=== PATIENT | male | born 1955 | race Caucasian/White ===

== ENCOUNTER 2017-05-19 15:16 | Observation (INO) | payer MEDICARE ==
[~2017-05-19] VITALS: Ht 180.3 cm; Wt 119.4 kg
[~2017-05-19 15:16] MED LIST: ALBU90OI INH; ALLO300 PO; ASPI325 PO; ASPI81EC PO; ATECHL PO; AZIT250 PO; CLOP75 PO; DIAZ2 PO; DIPH50 PO; FISH OIL 1,0001 EAC1 PO; HYDACE25S PR; HYDACE5 PO; LISHYD1012 PO; LISI5 PO; LOVA40 PO; METPRE4DP PO; NAPR500 PO; NEBI10 PO; NEBI5 PO; PRED20 PO; Pepcid40 MG PO; Prednisone10 MG PO
[2017-05-19 16:09] LABS: BASOPHILS ABSOLUTE AUTO 0.04 K/mm3 (0.00-0.23); BASOPHILS PERCENT AUTO 0 % (0-2); EOSINOPHILS ABSOLUTE AUTO 0.19 K/mm3 (0.00-0.68); EOSINOPHILS PERCENT AUTO 2 % (0-6); Hematocrit 46.4 % (37.0-53.0); Hemoglobin 15.4 g/dL (13.5-17.5); IMMATURE GRAN ABSOLUTE AUTO 0.09 K/mm3 (0.00-0.10); IMMATURE GRAN PERCENT AUTO 1 % (0-1); LYMPHOCYTES ABSOLUTE AUTO 1.65 K/mm3 (0.84-5.20); LYMPHOCYTES PERCENT AUTO 15 % (21-46); MONOCYTES ABSOLUTE AUTO 0.54 K/mm3 (0.16-1.47); MONOCYTES PERCENT AUTO 5 % (4-13); Mean Corpuscular HGB 30.3 pg (26.0-34.0); Mean Corpuscular HGB Conc 33.2 g/dL (31.5-36.5); Mean Corpuscular Volume 91 fL (80-100); Mean Platelet Volume 11.5 fL (9.1-12.4); NEUTROPHILS ABSOLUTE AUTO 8.18 K/mm3 (1.96-9.15); NEUTROPHILS PERCENT AUTO 77 % (41-73); Platelet Count 141 K/mm3 (150-400); RDW Coefficient Variation 14.3 % (11.7-14.2); RDW Standard Deviation 48.5 fL (35.1-46.3); Red Blood Cell Count 5.08 M/mm3 (4.30-5.90); White Blood Cell Count 10.69 K/mm3 (4.00-11.30)
[2017-05-19 16:55] LABS: Alanine Aminotransfer (ALT/SGP 52 U/L (12-78); Albumin, Blood 3.4 g/dL (3.4-5.0); Albumin/Globulin Ratio 0.7 (0.8-1.8); Alk Phos 90 U/L (50-136); Anion Gap 9 mmol/L (6-16); Aspartate Aminotrans (AST/SGOT 41 U/L (12-37); Bilirubin, Total 0.4 mg/dL (0.1-1.0); Blood Urea Nitrogen 20 mg/dL (8-24); Bun/Creatinine Ratio 20.8 (12.0-20.0); CO2, Blood 25 mmol/L (21-32); Calcium, Blood 9.5 mg/dL (8.5-10.1); Chloride, Blood 104 mmol/L (98-108); Creatinine, Blood 0.96 mg/dL (0.60-1.20); Globulin, Blood 4.8 g/dL (2.2-4.0); Glomerular Filtration Rate >60 (60-); Glucose, Blood 111 mg/dL (70-99); Potassium, Blood 3.8 mmol/L (3.5-5.5); Sodium, Blood 138 mmol/L (136-145); Total Protein, Blood 8.2 g/dL (6.4-8.2); Troponin I <0.015 ng/mL (0.000-0.040)
[2017-05-19 18:26] LABS: Source, Urine Voided
[2017-05-19 18:31] LABS: Appearance, Urine Clear (Clear); Bilirubin, Urine Neg (Neg); Blood, Urine Neg (Neg); Color, Urine Yellow (P-Yellow); Glucose Qualitative, Urine Neg (Neg); Ketones, Urine Neg (Neg); Leukocyte Esterase, Urine Neg (Neg); Nitrite, Urine Neg (Neg); Protein, Urine Neg (Neg); Specific Gravity, Urine 1.005 (1.003-1.022); Urobilinogen, Urine NORM (Normal)
[2017-05-20 00:31] LABS: Troponin I 0.524 ng/mL (0.000-0.040)
[2017-05-20 06:21] LABS: International Normalized Ratio 1.08; Prothrombin Time Results 11.3 Sec (9.7-11.5)
[2017-05-20 08:22] LABS: BASOPHILS ABSOLUTE AUTO 0.03 K/mm3 (0.00-0.23); BASOPHILS PERCENT AUTO 0 % (0-2); EOSINOPHILS ABSOLUTE AUTO 0.02 K/mm3 (0.00-0.68); EOSINOPHILS PERCENT AUTO 0 % (0-6); Hematocrit 44.8 % (37.0-53.0); Hemoglobin 15.2 g/dL (13.5-17.5); IMMATURE GRAN ABSOLUTE AUTO 0.13 K/mm3 (0.00-0.10); IMMATURE GRAN PERCENT AUTO 1 % (0-1); LYMPHOCYTES ABSOLUTE AUTO 0.88 K/mm3 (0.84-5.20); LYMPHOCYTES PERCENT AUTO 8 % (21-46); MONOCYTES ABSOLUTE AUTO 0.56 K/mm3 (0.16-1.47); MONOCYTES PERCENT AUTO 5 % (4-13); Mean Corpuscular HGB 30.5 pg (26.0-34.0); Mean Corpuscular HGB Conc 33.9 g/dL (31.5-36.5); Mean Corpuscular Volume 90 fL (80-100); Mean Platelet Volume 11.5 fL (9.1-12.4); NEUTROPHILS ABSOLUTE AUTO 9.55 K/mm3 (1.96-9.15); NEUTROPHILS PERCENT AUTO 85 % (41-73); Platelet Count 121 K/mm3 (150-400); RDW Coefficient Variation 14.4 % (11.7-14.2); RDW Standard Deviation 47.9 fL (35.1-46.3); Red Blood Cell Count 4.98 M/mm3 (4.30-5.90); White Blood Cell Count 11.17 K/mm3 (4.00-11.30)
[2017-05-20 08:52] LABS: Alanine Aminotransfer (ALT/SGP 52 U/L (12-78); Albumin, Blood 3.4 g/dL (3.4-5.0); Albumin/Globulin Ratio 0.7 (0.8-1.8); Alk Phos 81 U/L (50-136); Anion Gap 4 mmol/L (6-16); Aspartate Aminotrans (AST/SGOT 75 U/L (12-37); Bilirubin, Total 0.6 mg/dL (0.1-1.0); Blood Urea Nitrogen 16 mg/dL (8-24); Bun/Creatinine Ratio 18.1 (12.0-20.0); CO2, Blood 25 mmol/L (21-32); CPK Creatine Kinase 363 U/L (39-308); Calcium, Blood 9.3 mg/dL (8.5-10.1); Chloride, Blood 108 mmol/L (98-108); Creatinine, Blood 0.88 mg/dL (0.60-1.20); Globulin, Blood 4.6 g/dL (2.2-4.0); Glomerular Filtration Rate >60 (60-); Glucose, Blood 169 mg/dL (70-99); Potassium, Blood 3.6 mmol/L (3.5-5.5); Sodium, Blood 137 mmol/L (136-145)
[2017-05-20 09:08] LABS: Creatine Kinase MB 38.5 ng/mL (0.0-3.6); Creatine Kinase MB Index 10.6 (0.0-4.0)
[2017-05-21] MEDS ORDERED: FISH OIL OMEGA1 EAC2 PO (11:58)
[2017-05-21] MEDS ORDERED: NITR.4SL SL (12:02)
[2017-05-21] MEDS ORDERED: XARELTO15 MG PO (12:03)
[2017-05-21] MEDS ORDERED: BRILINTA90 MG PO (12:04)
== END 2017-05-21 12:51 | disposition home or self-care (01) ==
LOC: ER 15:16 → ICUE 15:17 → MEDS 15:17 → ICUE 18:35 → MEDS 18:46 → ICUE 05-20 05:24
PROVIDERS: Hospitalist; Internal Medicine; Physician Assistant
DX: I21.3 ST elevation (STEMI) myocardial infarction of unspecified site (principal); I10 Essential (primary) hypertension; I25.10 Atherosclerotic heart disease of native coronary artery without angina pectoris; E78.5 Hyperlipidemia, unspecified; I25.9 Chronic ischemic heart disease, unspecified; I25.2 Old myocardial infarction; Z98.890 Other specified postprocedural states; Z87.01 Personal history of pneumonia (recurrent); Z79.82 Long term (current) use of aspirin; Z79.02 Long term (current) use of antithrombotics/antiplatelets; Z79.899 Other long term (current) drug therapy
CPT/HCPCS: 36415; 71046; 76705; 80053; 81003; 82550; 82553; 83690; 83880; 84484; 85025; 85347; 85610; 85730; 92978; 93005; 93010; 93306; 93454; 99152; 99153; 99285; C1753; C1769; C1894; C9113; J0360; J1644; J2250; J2405; J3010; J7030; J7040; Q9967

== ENCOUNTER 2017-07-13 14:36 | Emergency (ER) | payer MEDICARE ==
[~2017-07-13] VITALS: Ht 175.3 cm; Wt 119.8 kg
[~2017-07-13 14:36] MED LIST changes: +BRILINTA90 MG PO; +FISH OIL OMEGA1 EAC2 PO; +NITR.4SL SL; +XARELTO15 MG PO
== END 2017-07-13 15:03 | disposition home or self-care (01) ==
LOC: ER 14:36
DX: S91.311A Laceration without foreign body, right foot, initial encounter (principal); W22.8XXA Striking against or struck by other objects, initial encounter; Z79.899 Other long term (current) drug therapy; Z79.82 Long term (current) use of aspirin; I10 Essential (primary) hypertension; Z87.891 Personal history of nicotine dependence
CPT/HCPCS: 12001; 99282

== ENCOUNTER 2018-02-15 19:34 | Emergency (ER) | payer MEDICARE, OTHER ==
[~2018-02-15] VITALS: Ht 175.3 cm; Wt 110.2 kg
[~2018-02-15 19:34] MED LIST changes: +ASCO500 PO; +ASPI81CH PO; +ESOM20 PO; +Prinivil10 MG PO; +XARELTO10 MG PO
[2018-02-15] MEDS ORDERED: Gummi Bear Mul1 EACH PO (20:31)
[2018-02-15] MEDS ORDERED: IRON PO (20:33)
[2018-02-15 20:37] LABS: BASOPHILS ABSOLUTE AUTO 0.04 K/mm3 (0.00-0.23); BASOPHILS PERCENT AUTO 0 % (0-2); EOSINOPHILS ABSOLUTE AUTO 0.04 K/mm3 (0.00-0.68); EOSINOPHILS PERCENT AUTO 0 % (0-6); Hematocrit 47.4 % (37.0-53.0); Hemoglobin 14.7 g/dL (13.5-17.5); IMMATURE GRAN ABSOLUTE AUTO 0.08 K/mm3 (0.00-0.10); IMMATURE GRAN PERCENT AUTO 1 % (0-1); LYMPHOCYTES PERCENT AUTO 13 % (21-46); MONOCYTES ABSOLUTE AUTO 0.51 K/mm3 (0.16-1.47); MONOCYTES PERCENT AUTO 4 % (4-13); Mean Corpuscular HGB 29.4 pg (26.0-34.0); Mean Corpuscular Volume 95 fL (80-100); Mean Platelet Volume 10.8 fL (9.1-12.4); NEUTROPHILS ABSOLUTE AUTO 9.37 K/mm3 (1.96-9.15); NEUTROPHILS PERCENT AUTO 81 % (41-73); Platelet Count 123 K/mm3 (150-400); RDW Coefficient Variation 17.8 % (11.7-14.2); RDW Standard Deviation 62.4 fL (35.1-46.3); White Blood Cell Count 11.54 K/mm3 (4.00-11.30)
[2018-02-15 20:50] LABS: International Normalized Ratio 1.03; Prothrombin Time Results 10.6 Sec (9.7-11.5)
[2018-02-15 20:58] LABS: Albumin, Blood 3.3 g/dL (3.4-5.0); Albumin/Globulin Ratio 0.7 (0.8-1.8); Bilirubin, Total 0.3 mg/dL (0.1-1.0); Bun/Creatinine Ratio 21.1 (12.0-20.0); Calcium, Blood 8.9 mg/dL (8.5-10.1); Creatinine, Blood 1.33 mg/dL (0.60-1.20); Globulin, Blood 4.6 g/dL (2.2-4.0); Potassium, Blood 4.7 mmol/L (3.5-5.5); Total Protein, Blood 7.9 g/dL (6.4-8.2)
== END 2018-02-15 21:50 | disposition home or self-care (01) ==
LOC: ER 19:34
PROVIDERS: Emergency Medicine
DX: R25.2 Cramp and spasm (principal); I10 Essential (primary) hypertension; D64.9 Anemia, unspecified
CPT/HCPCS: 36415; 80053; 85025; 85610; 85730; 86850; 86900; 86901; 93005; 93010; 99283-25

== ENCOUNTER 2018-02-22 19:40 | Emergency (ER) | payer MEDICARE, OTHER ==
[~2018-02-22] VITALS: Ht 175.3 cm; Wt 108.9 kg
[~2018-02-22 19:40] MED LIST changes: +Gummi Bear Mul1 EACH PO; +IRON PO
[2018-02-22 20:21] LABS: BASOPHILS ABSOLUTE AUTO 0.03 K/mm3 (0.00-0.23); BASOPHILS PERCENT AUTO 0 % (0-2); EOSINOPHILS ABSOLUTE AUTO 0.02 K/mm3 (0.00-0.68); EOSINOPHILS PERCENT AUTO 0 % (0-6); Hematocrit 48.5 % (37.0-53.0); Hemoglobin 14.9 g/dL (13.5-17.5); IMMATURE GRAN ABSOLUTE AUTO 0.09 K/mm3 (0.00-0.10); IMMATURE GRAN PERCENT AUTO 1 % (0-1); LYMPHOCYTES ABSOLUTE AUTO 1.49 K/mm3 (0.84-5.20); LYMPHOCYTES PERCENT AUTO 15 % (21-46); MONOCYTES ABSOLUTE AUTO 0.51 K/mm3 (0.16-1.47); MONOCYTES PERCENT AUTO 5 % (4-13); Mean Corpuscular HGB 28.8 pg (26.0-34.0); Mean Corpuscular HGB Conc 30.7 g/dL (31.5-36.5); Mean Corpuscular Volume 94 fL (80-100); Mean Platelet Volume 10.3 fL (9.1-12.4); NEUTROPHILS ABSOLUTE AUTO 8.03 K/mm3 (1.96-9.15); NEUTROPHILS PERCENT AUTO 79 % (41-73); Platelet Count 123 K/mm3 (150-400); RDW Coefficient Variation 17.3 % (11.7-14.2); RDW Standard Deviation 60.4 fL (35.1-46.3); Red Blood Cell Count 5.18 M/mm3 (4.30-5.90); White Blood Cell Count 10.17 K/mm3 (4.00-11.30)
[2018-02-22 20:46] LABS: Alanine Aminotransfer (ALT/SGP 71 U/L (12-78); Albumin, Blood 3.3 g/dL (3.4-5.0); Albumin/Globulin Ratio 0.7 (0.8-1.8); Alk Phos 81 U/L (50-136); Anion Gap 8 mmol/L (6-16); Aspartate Aminotrans (AST/SGOT 36 U/L (12-37); Bilirubin, Total 0.3 mg/dL (0.1-1.0); Blood Urea Nitrogen 27 mg/dL (8-24); Bun/Creatinine Ratio 25.2 (12.0-20.0); CO2, Blood 24 mmol/L (21-32); Calcium, Blood 8.9 mg/dL (8.5-10.1); Chloride, Blood 110 mmol/L (98-108); Creatinine, Blood 1.07 mg/dL (0.60-1.20); Globulin, Blood 4.5 g/dL (2.2-4.0); Glomerular Filtration Rate >60 (60-); Glucose, Blood 106 mg/dL (70-99); Potassium, Blood 4.5 mmol/L (3.5-5.5); Sodium, Blood 142 mmol/L (136-145); Total Protein, Blood 7.8 g/dL (6.4-8.2)
[2018-02-23] MEDS ORDERED: Cyclobenzaprine5 MG PO (00:30)
== END 2018-02-23 00:57 | disposition home or self-care (01) ==
LOC: ER 19:40
PROVIDERS: Emergency Medicine
DX: R25.2 Cramp and spasm (principal); Z79.899 Other long term (current) drug therapy; Z79.82 Long term (current) use of aspirin; I10 Essential (primary) hypertension; I25.2 Old myocardial infarction; Z87.891 Personal history of nicotine dependence
CPT/HCPCS: 36415; 70450; 80053; 85025; 99284-25

== ENCOUNTER 2018-05-13 17:40 | Emergency (ER) | payer MEDICARE ==
[~2018-05-13] VITALS: Ht 175.3 cm; Wt 111.1 kg
[~2018-05-13 17:40] MED LIST changes: +Cyclobenzaprine5 MG PO
[2018-05-13 18:17] LABS: BASOPHILS ABSOLUTE AUTO 0.04 K/mm3 (0.00-0.23); BASOPHILS PERCENT AUTO 0 % (0-2); EOSINOPHILS ABSOLUTE AUTO 0.15 K/mm3 (0.00-0.68); EOSINOPHILS PERCENT AUTO 2 % (0-6); Hematocrit 45.9 % (37.0-53.0); Hemoglobin 14.4 g/dL (13.5-17.5); IMMATURE GRAN PERCENT AUTO 1 % (0-1); LYMPHOCYTES ABSOLUTE AUTO 1.44 K/mm3 (0.84-5.20); LYMPHOCYTES PERCENT AUTO 15 % (21-46); MONOCYTES ABSOLUTE AUTO 0.45 K/mm3 (0.16-1.47); MONOCYTES PERCENT AUTO 5 % (4-13); Mean Corpuscular HGB 29.6 pg (26.0-34.0); Mean Corpuscular HGB Conc 31.4 g/dL (31.5-36.5); Mean Corpuscular Volume 94 fL (80-100); NEUTROPHILS ABSOLUTE AUTO 7.21 K/mm3 (1.96-9.15); NEUTROPHILS PERCENT AUTO 77 % (41-73); RDW Coefficient Variation 13.9 % (11.7-14.2); RDW Standard Deviation 47.7 fL (35.1-46.3); Red Blood Cell Count 4.87 M/mm3 (4.30-5.90); White Blood Cell Count 9.39 K/mm3 (4.00-11.30)
[2018-05-13 18:34] LABS: Mean Platelet Volume 11.3 fL (9.1-12.4); Platelet Count 121 K/mm3 (150-400)
[2018-05-13 18:38] LABS: Alanine Aminotransfer (ALT/SGP 43 U/L (12-78); Albumin, Blood 3.3 g/dL (3.4-5.0); Albumin/Globulin Ratio 0.7 (0.8-1.8); Alk Phos 88 U/L (50-136); Anion Gap 4 mmol/L (6-16); Aspartate Aminotrans (AST/SGOT 27 U/L (12-37); Bilirubin, Total 0.4 mg/dL (0.1-1.0); Blood Urea Nitrogen 18 mg/dL (8-24); Bun/Creatinine Ratio 17.1 (12.0-20.0); CO2, Blood 28 mmol/L (21-32); Calcium, Blood 9.2 mg/dL (8.5-10.1); Chloride, Blood 106 mmol/L (98-108); Creatinine, Blood 1.05 mg/dL (0.60-1.20); Globulin, Blood 4.8 g/dL (2.2-4.0); Glomerular Filtration Rate >60 (60-); Glucose, Blood 116 mg/dL (70-99); Potassium, Blood 4.1 mmol/L (3.5-5.5); Sodium, Blood 138 mmol/L (136-145); Total Protein, Blood 8.1 g/dL (6.4-8.2); Troponin I <0.015 ng/mL (0.000-0.040)
== END 2018-05-13 21:50 | disposition home or self-care (01) ==
LOC: ER 17:40
PROVIDERS: Emergency Medicine
DX: R07.9 Chest pain, unspecified (principal); I10 Essential (primary) hypertension; Z95.5 Presence of coronary angioplasty implant and graft; Z88.2 Allergy status to sulfonamides; Z88.8 Allergy status to other drugs, medicaments and biological substances; Z79.82 Long term (current) use of aspirin; Z79.899 Other long term (current) drug therapy
CPT/HCPCS: 36415; 71046; 80053; 83690; 84484; 85025; 93005; 93010; 99285-25

== ENCOUNTER 2018-10-29 09:23 | Emergency (ER) | payer OTHER, MEDICARE ==
[~2018-10-29] VITALS: Ht 175.3 cm; Wt 106.1 kg
[~2018-10-29 09:23] MED LIST changes: -ASPI81CH PO; +Aspir 8181 MG PO; +LISI20 PO
[2018-10-29] MEDS ORDERED: ESOMEPRAZOLE MA40 MG PO (09:43)
[2018-10-29] MEDS ORDERED: Voltaren100 GM TOP (11:09)
[2018-10-29] MEDS ORDERED: CYCL10 PO (11:09)
[2018-10-29] MEDS ORDERED: Ultram50 MG PO (11:09)
[2018-10-30] MEDS ORDERED: ONDA4ODT MM (04:55)
[2018-10-30] MEDS ORDERED: CYCL10 PO (13:52)
== END 2018-10-29 11:37 | disposition home or self-care (01) ==
LOC: ER 09:23
DX: M25.552 Pain in left hip (principal); I10 Essential (primary) hypertension; I25.10 Atherosclerotic heart disease of native coronary artery without angina pectoris; I25.2 Old myocardial infarction; Z88.8 Allergy status to other drugs, medicaments and biological substances; Z79.899 Other long term (current) drug therapy; Z79.02 Long term (current) use of antithrombotics/antiplatelets; Z79.82 Long term (current) use of aspirin
CPT/HCPCS: 73502; 99283-25; A9270-GY

== ENCOUNTER 2018-10-30 10:03 | Observation (INO) | payer MEDICARE ==
[~2018-10-30] VITALS: Ht 175.3 cm; Wt 107.0 kg
[~2018-10-30 10:03] MED LIST changes: +CYCL10 PO; +ESOMEPRAZOLE MA40 MG PO; +ONDA4ODT MM; +Ultram50 MG PO; +Voltaren100 GM TOP
[2018-10-30 10:38] LABS: BASOPHILS ABSOLUTE AUTO 0.05 K/mm3 (0.00-0.23); BASOPHILS PERCENT AUTO 1 % (0-2); EOSINOPHILS ABSOLUTE AUTO 0.05 K/mm3 (0.00-0.68); EOSINOPHILS PERCENT AUTO 1 % (0-6); Hematocrit 43.9 % (37.0-53.0); Hemoglobin 14.7 g/dL (13.5-17.5); IMMATURE GRAN PERCENT AUTO 1 % (0-1); LYMPHOCYTES PERCENT AUTO 13 % (21-46); MONOCYTES ABSOLUTE AUTO 0.49 K/mm3 (0.16-1.47); MONOCYTES PERCENT AUTO 5 % (4-13); Mean Corpuscular HGB 30.4 pg (26.0-34.0); Mean Corpuscular HGB Conc 33.5 g/dL (31.5-36.5); Mean Corpuscular Volume 91 fL (80-100); Mean Platelet Volume 11.4 fL (9.1-12.4); NEUTROPHILS ABSOLUTE AUTO 8.74 K/mm3 (1.96-9.15); NEUTROPHILS PERCENT AUTO 81 % (41-73); Platelet Count 136 K/mm3 (150-400); RDW Coefficient Variation 14.8 % (11.7-14.2); RDW Standard Deviation 49.9 fL (35.1-46.3); Red Blood Cell Count 4.83 M/mm3 (4.30-5.90); White Blood Cell Count 10.83 K/mm3 (4.00-11.30)
[2018-10-30 10:53] LABS: Alanine Aminotransfer (ALT/SGP 51 U/L (12-78); Albumin, Blood 3.6 g/dL (3.4-5.0); Albumin/Globulin Ratio 0.7 (0.8-1.8); Alk Phos 89 U/L (50-136); Anion Gap 7 mmol/L (6-16); Aspartate Aminotrans (AST/SGOT 42 U/L (12-37); Bilirubin, Total 0.5 mg/dL (0.1-1.0); Blood Urea Nitrogen 20 mg/dL (8-24); Bun/Creatinine Ratio 20.7 (12.0-20.0); CO2, Blood 23 mmol/L (21-32); Calcium, Blood 9.4 mg/dL (8.5-10.1); Chloride, Blood 109 mmol/L (98-108); Creatinine, Blood 0.97 mg/dL (0.60-1.20); Glomerular Filtration Rate >60 (60-); Glucose, Blood 131 mg/dL (70-99); Potassium, Blood 4.2 mmol/L (3.5-5.5); Sodium, Blood 139 mmol/L (136-145); Total Protein, Blood 8.6 g/dL (6.4-8.2)
[2018-10-30 13:34] LABS: Source, Urine Clean Catch
[2018-10-30 13:43] LABS: Bilirubin, Urine Neg (Neg); Blood, Urine 1+ (Neg); Glucose Qualitative, Urine Neg (Neg); Ketones, Urine Neg (Neg); Leukocyte Esterase, Urine Neg (Neg); Nitrite, Urine Neg (Neg); Protein, Urine 2+ (Neg); Specific Gravity, Urine 1.015 (1.003-1.022); Urobilinogen, Urine NORM (Normal)
[2018-10-30] MEDS ORDERED: CYCL10 PO (13:52)
[2018-10-30 13:56] LABS: Appearance, Urine Clear (Clear); Color, Urine Yellow (P-Yellow)
[2018-10-30 13:57] LABS: Bacteria Mod /hpf; Red Blood Cells, Urine Not Seen /hpf (0-2); Squamous Epithelial Cells Rare /hpf (Few); White Blood Cells, Urine 0-2 /hpf (0-5)
[2018-10-30 13:58] LABS: Mucus Light (0-Heavy)
--- NOTE | 2018-10-30 19:09 | NUR ---
SHIFT SUMMARY: PATIENT ADMIT FROM ED THIS SHIFT. PT A&O; CALM AND COOEPRATIVE WITH CARE. MEDICATED FOR PAIN PER EMAR. 2X SMALL BLOODY STOOLS THIS SHIFT; NM SCAN EARLIER IN ED; NO EVIDENCE OF ACUTE GI HEMORRHAGE; HEMOCCULT POSITIVE. IN ROOM. FLUIDS + KCL CONTINUING; OBSERVATION STATUS. REPORT GIVEN TO ONCOMING RN.
[2018-10-30 20:25] LABS: Hematocrit 40.6 % (37.0-53.0); Hemoglobin 13.4 g/dL (13.5-17.5)
--- NOTE | 2018-10-31 04:57 | NUR ---
SHIFT SUMMARY: Santosh IS A 63 Y/O MALE, INDEPENDENT IN THE ROOM. WHO HAS BEEN HAVING BLOODY STOOLS THROUGHOUT THE NIGHT. HE REPORTS THREE UNWITNESSED STOOLS AND 1 WITNESSED THAT SHOWED 1/8 OF A CUP OF BRIGHT RED BLOOD IN THE HAT. STATES IT HAS BEEN CONTINUING TO INCREASE IN AMOUNT EACH MOVEMENT. IV INFUSING THROUGHOUT THE NIGHT WITH NO COMPLICATIONS, MEDS WERE ADMINISTERED PER EMAR. HAS REMAINED AT HIS SIDE ALL NIGHT. HE HAS NOT COMPLAINED OF PAIN THIS SHIFT. NO OTHER CHANGES HAVE OCCURED, CALL LIGHT HAS REMAINED WITH IN REACH AND USED APPROPRIATLY, WILL REPORT TO ON COMING RN.
[2018-10-31 05:01] LABS: BASOPHILS ABSOLUTE AUTO 0.03 K/mm3 (0.00-0.23); BASOPHILS PERCENT AUTO 0 % (0-2); EOSINOPHILS ABSOLUTE AUTO 0.09 K/mm3 (0.00-0.68); EOSINOPHILS PERCENT AUTO 1 % (0-6); Hematocrit 42.8 % (37.0-53.0); Hemoglobin 13.6 g/dL (13.5-17.5); IMMATURE GRAN ABSOLUTE AUTO 0.04 K/mm3 (0.00-0.10); IMMATURE GRAN PERCENT AUTO 1 % (0-1); LYMPHOCYTES ABSOLUTE AUTO 1.19 K/mm3 (0.84-5.20); LYMPHOCYTES PERCENT AUTO 15 % (21-46); MONOCYTES ABSOLUTE AUTO 0.52 K/mm3 (0.16-1.47); MONOCYTES PERCENT AUTO 6 % (4-13); Mean Corpuscular HGB 29.6 pg (26.0-34.0); Mean Corpuscular HGB Conc 31.8 g/dL (31.5-36.5); Mean Corpuscular Volume 93 fL (80-100); NEUTROPHILS ABSOLUTE AUTO 6.21 K/mm3 (1.96-9.15); NEUTROPHILS PERCENT AUTO 77 % (41-73); Platelet Count 108 K/mm3 (150-400); RDW Coefficient Variation 14.9 % (11.7-14.2); RDW Standard Deviation 51.6 fL (35.1-46.3); Red Blood Cell Count 4.59 M/mm3 (4.30-5.90); White Blood Cell Count 8.08 K/mm3 (4.00-11.30)
[2018-10-31 05:29] LABS: Anion Gap 4 mmol/L (6-16); Blood Urea Nitrogen 15 mg/dL (8-24); Bun/Creatinine Ratio 15.3 (12.0-20.0); CO2, Blood 26 mmol/L (21-32); Calcium, Blood 8.9 mg/dL (8.5-10.1); Chloride, Blood 110 mmol/L (98-108); Creatinine, Blood 0.98 mg/dL (0.60-1.20); Glomerular Filtration Rate >60 (60-); Glucose, Blood 130 mg/dL (70-99); Sodium, Blood 140 mmol/L (136-145)
--- NOTE | 2018-10-31 19:05 | NUR ---
PT. WITHOUT CHANGE THIS SHIFT. HAD TO STOOLS OF FLAQUITO RED BLOOD AND MUCUS, DIET ADVANCED TO FULL LIQUIDS AND PT. TOLERATED WELL. DENIES PAIN.
[2018-11-01 05:05] LABS: BASOPHILS ABSOLUTE AUTO 0.03 K/mm3 (0.00-0.23); BASOPHILS PERCENT AUTO 0 % (0-2); EOSINOPHILS ABSOLUTE AUTO 0.16 K/mm3 (0.00-0.68); EOSINOPHILS PERCENT AUTO 2 % (0-6); Hematocrit 42.2 % (37.0-53.0); Hemoglobin 13.4 g/dL (13.5-17.5); IMMATURE GRAN ABSOLUTE AUTO 0.04 K/mm3 (0.00-0.10); IMMATURE GRAN PERCENT AUTO 1 % (0-1); LYMPHOCYTES ABSOLUTE AUTO 1.48 K/mm3 (0.84-5.20); LYMPHOCYTES PERCENT AUTO 21 % (21-46); MONOCYTES ABSOLUTE AUTO 0.47 K/mm3 (0.16-1.47); MONOCYTES PERCENT AUTO 7 % (4-13); Mean Corpuscular HGB 29.7 pg (26.0-34.0); Mean Corpuscular HGB Conc 31.8 g/dL (31.5-36.5); Mean Corpuscular Volume 94 fL (80-100); Mean Platelet Volume 10.9 fL (9.1-12.4); NEUTROPHILS ABSOLUTE AUTO 4.92 K/mm3 (1.96-9.15); NEUTROPHILS PERCENT AUTO 69 % (41-73); Platelet Count 105 K/mm3 (150-400); RDW Coefficient Variation 14.9 % (11.7-14.2); RDW Standard Deviation 51.9 fL (35.1-46.3); Red Blood Cell Count 4.51 M/mm3 (4.30-5.90)
[2018-11-01 05:23] LABS: Alanine Aminotransfer (ALT/SGP 43 U/L (12-78); Albumin/Globulin Ratio 0.7 (0.8-1.8); Alk Phos 71 U/L (50-136); Anion Gap 7 mmol/L (6-16); Aspartate Aminotrans (AST/SGOT 30 U/L (12-37); Bilirubin, Total 0.4 mg/dL (0.1-1.0); Blood Urea Nitrogen 11 mg/dL (8-24); CO2, Blood 25 mmol/L (21-32); Calcium, Blood 9.2 mg/dL (8.5-10.1); Chloride, Blood 109 mmol/L (98-108); Creatinine, Blood 0.92 mg/dL (0.60-1.20); Globulin, Blood 4.2 g/dL (2.2-4.0); Glomerular Filtration Rate >60 (60-); Glucose, Blood 119 mg/dL (70-99); Potassium, Blood 4.1 mmol/L (3.5-5.5); Sodium, Blood 141 mmol/L (136-145); Total Protein, Blood 7.2 g/dL (6.4-8.2)
--- NOTE | 2018-11-01 05:49 | NUR ---
SHIFT SUMMARY: 63 Y/O MALE, INDEPENDENT IN THE ROOM, WHO HAS BEEN RESTING COMFORTABLY THROUGHOUT THE NIGHT. HE HAS HAD NO ACUTE CHANGES OR CONCERNS. MEDS WERE GIVEN PER EMAR. IV IS SL. NO PAIN OR DISCOMFORT THIS SHIFT. WILL REPORT TO DAY SHIFT RN.
--- NOTE | 2018-11-01 14:00 | NUR ---
PT. DISCHARGED HOME WITH SPOUSE. NO FURTHER BLEEDING NOTED. INSTRUCTIONS GIVEN TO FOLLOW UP WITH GI IF BLEEDING RECURS.
== END 2018-11-01 14:05 | disposition home or self-care (01) ==
LOC: ER 10:03 → MEDS 10:04 → ENPENDDIS 11-01 11:09 → MEDS 11-01 14:05
PROVIDERS: Family Medicine; Internal Medicine; ADMIT Hospitalist
DX: K92.1 Melena (principal); K57.91 Diverticulosis of intestine, part unspecified, without perforation or abscess with bleeding; K57.90 Diverticulosis of intestine, part unspecified, without perforation or abscess without bleeding; I10 Essential (primary) hypertension; I25.10 Atherosclerotic heart disease of native coronary artery without angina pectoris; E78.5 Hyperlipidemia, unspecified; M19.90 Unspecified osteoarthritis, unspecified site; K21.9 Gastro-esophageal reflux disease without esophagitis; I25.2 Old myocardial infarction; Z95.5 Presence of coronary angioplasty implant and graft; Z88.8 Allergy status to other drugs, medicaments and biological substances; R11.2 Nausea with vomiting, unspecified; Z79.899 Other long term (current) drug therapy; Z79.02 Long term (current) use of antithrombotics/antiplatelets; Z79.82 Long term (current) use of aspirin
CPT/HCPCS: 36415; 78278; 80048; 80053; 81001; 85014; 85018; 85025; 86850; 86900; 86901; 87086; 93005; 93010; 96361; 96374; 99284-25; A9270-GY; A9560; G0378; J2405; J3480

== ENCOUNTER 2018-12-21 07:22 | Day surgery (SDC) | payer MEDICARE, OTHER ==
[~2018-12-21] VITALS: Ht 175.3 cm; Wt 110.9 kg
[~2018-12-21 07:22] MED LIST changes: +Altoprev40 MG PO; +Ascorbic Acid500 MG PO; +Aspirin EC81 MG PO; +TICA90TA PO
== END 2018-12-21 10:21 | disposition home or self-care (01) ==
LOC: ORSCSDS 07:22
PROVIDERS: Student in an Organized Health Care Education/Training Program
PROC: 0DBN8ZX Excision of Sigmoid Colon, Via Natural or Artificial Opening Endoscopic, Diagnostic (ICD-10-PCS; principal; 2018-12-21 09:00)
PROC: 0DBL8ZX Excision of Transverse Colon, Via Natural or Artificial Opening Endoscopic, Diagnostic (ICD-10-PCS; principal; 2018-12-21 09:00)
DX: Z12.11 Encounter for screening for malignant neoplasm of colon (principal); D12.3 Benign neoplasm of transverse colon; K63.5 Polyp of colon; K55.20 Angiodysplasia of colon without hemorrhage; K57.30 Diverticulosis of large intestine without perforation or abscess without bleeding; K64.8 Other hemorrhoids; Z86.010 Personal history of colon polyps; I25.10 Atherosclerotic heart disease of native coronary artery without angina pectoris; Z79.899 Other long term (current) drug therapy; G47.33 Obstructive sleep apnea (adult) (pediatric); I10 Essential (primary) hypertension; E11.9 Type 2 diabetes mellitus without complications; E78.5 Hyperlipidemia, unspecified; Z79.82 Long term (current) use of aspirin; Z87.891 Personal history of nicotine dependence
CPT/HCPCS: 88305; J0330; J0461; J2001; J2250; J2405; J2704; J7120

== ENCOUNTER 2020-05-20 08:47 | Day surgery (SDC) | payer MEDICARE, OTHER ==
[~2020-05-20] VITALS: Ht 175.3 cm; Wt 119.2 kg
[~2020-05-20 08:47] MED LIST changes: +ACETAMINOPHEN500 MG PO; +NITROGLYCERIN0.4 M1 SL; +Nexium40 MG PO; +OMEP20ER PO; +Ondansetron Odt8 MG MM; +SUCR1 PO
--- NOTE | 2020-05-20 09:24 | NUR ---
Ambulatory in Day Surgery Patient confirms NPO status and agrees with scheduled surgery. History, Chart, Medications and Allergies reviewed before start of procedure. Lungs clear T/O to Auscultation. Patient reports completing Chlorhexadine shower X2 prior to admission to hospital.
--- NOTE | 2020-05-20 13:10 | NUR ---
PT ARRIVED FROM PACU AT APPROXIMATELY 1300. PT ALERT AND ORIENTED AT TIME OF ARRIVAL. R HIP DRESSING C/D/I. PT DENIES PAIN AND REPORTS NUMBNESS TO BLE. HE IS ABLE TO MOVE BLE BUT APPEARS TO HAVE SOME RESIDUAL WEAKNESS FROM SPINAL ANESTHESIA.
--- NOTE | 2020-05-20 18:21 | NUR ---
SHIFT REPORT PT HAS BEEN IN PLEASENT MOOD. PT IS A&O X4. PT IS TOLLERATING NORMAL TEXTURE FOOD AND THIN LIQUIDS WELL. PT DID COMPLAIN OF "HOT FLASH AND NAUSUA." NAUSEA RESOLVED WITH PRN ZOFRAN. VITAL SIGNS HAVE BEEN STABLE. PT NAPPED COMFORTABLY IN BED FOR APPROX 2 HOURS AFTER ARRIVAL. PT EXIBITED MOVEMENT BILATERALLY IN FEET. BILATERAL PEDAL PULSES ARE PRESENT. PT TRANSFERS WITH WALKER, GAIT BELT, AND MINIMAL ASSISTANCE. PT HAS A STEADY GAIT. PT TRANSFERED TO AND FROM CHAIR. WHILE IN CHAIR FEET WERE ELEVATED. PT LIKES TO TALK ALONG WITH TV SHOW HE IS WATCHING. PT REQUESTED URINAL OVERNIGHT. CALL LIGHT IS WITHIN REACH. IV IS PATENT.
--- NOTE | 2020-05-20 18:28 | NUR ---
SHIFT SUMMARY PT IS POD#0 FROM R TKA WITH DR. FREITAS. PT HAS DENIED PAIN POST-OP. HE WORKED WITH THERAPY THIS AFTERNOON AND IS SITTING UP TO THE CHAIR. PT TOLERATING PO. VSS. WILL MONITOR UNTIL REPORT TO NOC ANÍBAL.
[2020-05-21 05:18] LABS: BASOPHILS ABSOLUTE AUTO 0.01 K/mm3 (0.00-0.23); BASOPHILS PERCENT AUTO 0 % (0-2); EOSINOPHILS PERCENT AUTO 0 % (0-6); Hematocrit 33.9 % (37.0-53.0); Hemoglobin 11.1 g/dL (13.5-17.5); IMMATURE GRAN ABSOLUTE AUTO 0.12 K/mm3 (0.00-0.10); IMMATURE GRAN PERCENT AUTO 1 % (0-1); LYMPHOCYTES PERCENT AUTO 7 % (21-46); MONOCYTES ABSOLUTE AUTO 0.51 K/mm3 (0.16-1.47); MONOCYTES PERCENT AUTO 4 % (4-13); Mean Corpuscular HGB 30.7 pg (26.0-34.0); Mean Corpuscular HGB Conc 32.7 g/dL (31.5-36.5); Mean Corpuscular Volume 94 fL (80-100); Mean Platelet Volume 11.6 fL (9.1-12.4); NEUTROPHILS ABSOLUTE AUTO 10.51 K/mm3 (1.96-9.15); NEUTROPHILS PERCENT AUTO 88 % (41-73); Platelet Count 95 K/mm3 (150-400); RDW Coefficient Variation 13.8 % (11.7-14.2); RDW Standard Deviation 47.4 fL (35.1-46.3); Red Blood Cell Count 3.62 M/mm3 (4.30-5.90); White Blood Cell Count 11.95 K/mm3 (4.00-11.30)
[2020-05-21 05:57] LABS: Anion Gap 6 mmol/L (6-16); Blood Urea Nitrogen 19 mg/dL (8-24); Bun/Creatinine Ratio 17.9 (12.0-20.0); CO2, Blood 26 mmol/L (21-32); Calcium, Blood 8.4 mg/dL (8.5-10.1); Chloride, Blood 107 mmol/L (98-108); Creatinine, Blood 1.06 mg/dL (0.60-1.20); Glomerular Filtration Rate >60 (60-); Glucose, Blood 156 mg/dL (70-99); Potassium, Blood 4.6 mmol/L (3.5-5.5); Sodium, Blood 139 mmol/L (136-145)
--- NOTE | 2020-05-21 06:31 | NUR ---
SHIFT SUMMARY SITTING UP IN CHAIR AT BEDSIDE WITH EYES OPEN. HAS RESTED WELL THIS SHIFT. NO SIGNIFICANT CHANGES NOTED. RESPIRATIONS EVEN AN UNLABORED ON RA. ADEQUATE URINARY OUTPUT NOTED VIA URINAL. AMBULATED IN HALLWAY WITH SBA, FWW, AND GB, TOLERATED WELL. HAS DENIED NEED FOR PRN PAIN MEDS, SCHEDULED TYLENOL WAS SUFFICIENT WITH POLAR RAJENDRA TO MANANGE PAIN. JORDAN'S/SCD'S IN PLACE. HAS DENIED DISCOMFORT OR FURTHER NEEDS AT THIS TIME. SAFETY MEASURES IN PLACE. WILL CONTINUE TO MONITOR AND ADDRESS NEEDS OR CONCERNS THEY ARISE. HAND OFF TO BE GIVEN TO ONCOMING SHIFT USING SBAR DURING BEDSIDE REPORT.
[2020-05-21] MEDS ORDERED: ASPIR 8181 M1 PO (08:42)
[2020-05-21] MEDS ORDERED: Percocet 5-3251 EACH PO (08:42)
--- NOTE | 2020-05-21 11:35 | NUR ---
DISCHARGE PT LEFT VIA WHEELCHAIR AT APPROX 1130. PT USED [employer] TAXI PER HIS REQUEST. PT STATED WILL BE WAITING FOR HIM WITH WALKER ONCE HE ARRIVES HOME. ALL BELONGINGS SENT WITH PATIENT. DISCHARGE INFORMATION GONE OVER WITH PATIENT. DENIED FURTHER QUESTIONS. EXTRA DRESSINGS AND POLAR RAJENDRA WITH PATIENT. IV REMOVED PRIOR TO DISCHARGE. PT REPORTS PAIN TOLERABLE. WORKED WITH PT AND CLEARED. TOLERATED PO WELL.
== END 2020-05-21 11:30 | disposition home or self-care (01) ==
LOC: ORSCMMR 08:47 → SURS 12:58 → ORSCMMR 05-21 11:30
PROVIDERS: Orthopaedic Surgery
PROC: 0SR90JZ Replacement of Right Hip Joint with Synthetic Substitute, Open Approach (ICD-10-PCS; principal; 2020-05-20 10:45)
DX: M16.11 Unilateral primary osteoarthritis, right hip (principal); I10 Essential (primary) hypertension; I25.10 Atherosclerotic heart disease of native coronary artery without angina pectoris; I25.2 Old myocardial infarction; E78.00 Pure hypercholesterolemia, unspecified; E66.01 Morbid (severe) obesity due to excess calories; Z68.38 Body mass index [BMI] 38.0-38.9, adult; Z79.899 Other long term (current) drug therapy; Z79.82 Long term (current) use of aspirin
CPT/HCPCS: 36415; 72170; 80048; 85025; 97110; 97110-CQ; 97116-CQ; 97161; 97530-CQ; A9270; A9270-GY; C1776; J0171; J0690; J0735; J1100; J1885; J2250; J2370; J2405; J2704; J2795; J3010; J7120

== ENCOUNTER 2020-07-21 19:36 | Emergency (ER) | payer MEDICARE ==
[~2020-07-21] VITALS: Ht 175.3 cm; Wt 117.9 kg
[~2020-07-21 19:36] MED LIST changes: +ASPIR 8181 M1 PO; +Percocet 5-3251 EACH PO
== END 2020-07-21 19:58 | disposition home or self-care (01) ==
LOC: ER 19:36
DX: Z04.89 Encounter for examination and observation for other specified reasons (principal); I10 Essential (primary) hypertension; Z88.0 Allergy status to penicillin; Z79.82 Long term (current) use of aspirin; Z87.891 Personal history of nicotine dependence; Z95.5 Presence of coronary angioplasty implant and graft
CPT/HCPCS: 99282

== ENCOUNTER 2021-09-04 04:02 | Emergency (ER) | payer MEDICARE ==
[~2021-09-04] VITALS: Ht 175.3 cm; Wt 117.9 kg
[2021-09-04] MEDS ORDERED: NYSTOP15 GM TOP (05:18)
== END 2021-09-04 05:30 | disposition home or self-care (01) ==
LOC: ER 04:02
DX: L30.4 Erythema intertrigo (principal); I10 Essential (primary) hypertension; I25.2 Old myocardial infarction; I25.10 Atherosclerotic heart disease of native coronary artery without angina pectoris; Z88.8 Allergy status to other drugs, medicaments and biological substances; Z79.899 Other long term (current) drug therapy; Z87.891 Personal history of nicotine dependence
CPT/HCPCS: 99282

== ENCOUNTER 2021-09-05 14:08 | Inpatient (IN) | payer MEDICARE ==
[~2021-09-05] VITALS: Ht 175.3 cm; Wt 110.0 kg
[~2021-09-05 14:08] MED LIST changes: +NYSTOP15 GM TOP
[2021-09-05 15:18] LABS: BASOPHILS ABSOLUTE AUTO 0.05 K/mm3 (0.00-0.23); BASOPHILS PERCENT AUTO 0 % (0-2); EOSINOPHILS PERCENT AUTO 0 % (0-6); Hemoglobin 14.7 g/dL (13.5-17.5); IMMATURE GRAN ABSOLUTE AUTO 0.31 K/mm3 (0.00-0.10); IMMATURE GRAN PERCENT AUTO 1 % (0-1); LYMPHOCYTES ABSOLUTE AUTO 0.57 K/mm3 (0.84-5.20); LYMPHOCYTES PERCENT AUTO 3 % (21-46); MONOCYTES ABSOLUTE AUTO 0.77 K/mm3 (0.16-1.47); MONOCYTES PERCENT AUTO 3 % (4-13); Mean Corpuscular HGB 30.9 pg (26.0-34.0); Mean Corpuscular HGB Conc 34.2 g/dL (31.5-36.5); Mean Corpuscular Volume 91 fL (80-100); Mean Platelet Volume 11.3 fL (9.1-12.4); NEUTROPHILS ABSOLUTE AUTO 21.07 K/mm3 (1.96-9.15); NEUTROPHILS PERCENT AUTO 93 % (41-73); Platelet Count 104 K/mm3 (150-400); RDW Coefficient Variation 13.5 % (11.7-14.2); RDW Standard Deviation 45.2 fL (35.1-46.3); Red Blood Cell Count 4.75 M/mm3 (4.30-5.90); White Blood Cell Count 22.77 K/mm3 (4.00-11.30)
[2021-09-05 15:33] LABS: Albumin, Blood 3.4 g/dL (3.4-5.0); Albumin/Globulin Ratio 0.7 (0.8-1.8); Bilirubin, Total 0.9 mg/dL (0.1-1.0); Bun/Creatinine Ratio 20.1 (12.0-20.0); Calcium, Blood 9.5 mg/dL (8.5-10.1); Creatinine, Blood 0.95 mg/dL (0.60-1.20); Globulin, Blood 5.2 g/dL (2.2-4.0); Potassium, Blood 4.2 mmol/L (3.5-5.5); Total Protein, Blood 8.6 g/dL (6.4-8.2)
--- NOTE | 2021-09-06 04:44 | NUR ---
SHIFT SUMMARY PT NEW ED ADMIT THIS EVENING. A/O X 4. SLIGHTLY UNSTEADY ON HIS FEET BUT AMBULATED WELL WITH JUST A SBA FROM THE ED GURNEY TO THE BED. PT SLEPT MUCH OF THE EVENING. RASH/EXCORIATION/FUNGAL INFECTION TO R GROIN CLEANED AND DRIED, PICTURES TAKEN AND PLACED IN CHART, AND ANTIFUNGAL POWDER APPLIED. REDNESS NOTED TO RLE WELL THAT PT REPORTS IS NOT NEW AND THAT HE WAS ON ANTIBIOTICS FOR PRIOR TO ADMISSION. VITAL SIGNS STABLE. NO ACUTE EVENTS THIS EVENING.
[2021-09-06 04:55] LABS: BASOPHILS ABSOLUTE AUTO 0.02 K/mm3 (0.00-0.23); BASOPHILS PERCENT AUTO 0 % (0-2); EOSINOPHILS PERCENT AUTO 0 % (0-6); Hematocrit 39.9 % (37.0-53.0); Hemoglobin 13.2 g/dL (13.5-17.5); IMMATURE GRAN ABSOLUTE AUTO 0.14 K/mm3 (0.00-0.10); IMMATURE GRAN PERCENT AUTO 1 % (0-1); LYMPHOCYTES ABSOLUTE AUTO 0.72 K/mm3 (0.84-5.20); LYMPHOCYTES PERCENT AUTO 4 % (21-46); MONOCYTES ABSOLUTE AUTO 0.55 K/mm3 (0.16-1.47); MONOCYTES PERCENT AUTO 3 % (4-13); Mean Corpuscular HGB 30.8 pg (26.0-34.0); Mean Corpuscular HGB Conc 33.1 g/dL (31.5-36.5); Mean Corpuscular Volume 93 fL (80-100); Mean Platelet Volume 11.4 fL (9.1-12.4); NEUTROPHILS PERCENT AUTO 92 % (41-73); Platelet Count 80 K/mm3 (150-400); RDW Coefficient Variation 13.8 % (11.7-14.2); Red Blood Cell Count 4.28 M/mm3 (4.30-5.90); White Blood Cell Count 18.03 K/mm3 (4.00-11.30)
[2021-09-06 05:15] LABS: Bun/Creatinine Ratio 18.3 (12.0-20.0); Calcium, Blood 8.8 mg/dL (8.5-10.1); Creatinine, Blood 1.26 mg/dL (0.60-1.20); Potassium, Blood 4.8 mmol/L (3.5-5.5)
--- NOTE | 2021-09-06 19:01 | NUR ---
SHIFT SUMMARY; PATIENT REMAINED ON BEDREST TODAY. COMPLAINING OF PAIN IN HIS RIGHT LEG. DENIES ANY PAIN OR BURNING IN HIS GROIN AREA. HE IS COMPLIANT WITH CARE. USES CALL LIGHT APPROPRIATELY. PER NEEDS TO HAVE SKIN MARKERS AROUND HIS REDDENED AREA ON HIS RIGHT LEG. PER PATIENT HIS OXYCODONE DID NOT HELP THE PAIN SO HE WAS MEDICATED WITH TORADOL AT SHIFT CHANGE 30MG IVP. REPORT TO VOLODYMYR SPANGLER AT SHIFT CHANGE.
--- NOTE | 2021-09-07 04:26 | NUR ---
SHIFT SUMMARY PT HAD AN UNEVENTFUL NIGHT. SLEPT OFF AND ON. OFFERED A SHOWER AND PT DECLINED. GROIN CLEANED, DRIED, AND ANTIFUNGAL POWDER APPLIED. RLE REDNESS WITH SLIGHT IMPROVEMENT. PT CONTINUES TO REPORT PAIN TO RLE. TORADOL AND PERCOCET EFFECTIVE. NEW IV PLACED TO R HAND. VITAL SIGNS STABLE. NO ACUTE EVENTS THIS EVENING.
[2021-09-07 04:56] LABS: BASOPHILS ABSOLUTE AUTO 0.02 K/mm3 (0.00-0.23); BASOPHILS PERCENT AUTO 0 % (0-2); EOSINOPHILS ABSOLUTE AUTO 0.08 K/mm3 (0.00-0.68); EOSINOPHILS PERCENT AUTO 1 % (0-6); Hematocrit 38.4 % (37.0-53.0); Hemoglobin 12.5 g/dL (13.5-17.5); IMMATURE GRAN ABSOLUTE AUTO 0.08 K/mm3 (0.00-0.10); IMMATURE GRAN PERCENT AUTO 1 % (0-1); LYMPHOCYTES PERCENT AUTO 8 % (21-46); MONOCYTES ABSOLUTE AUTO 0.41 K/mm3 (0.16-1.47); MONOCYTES PERCENT AUTO 4 % (4-13); Mean Corpuscular HGB 30.8 pg (26.0-34.0); Mean Corpuscular HGB Conc 32.6 g/dL (31.5-36.5); Mean Corpuscular Volume 95 fL (80-100); Mean Platelet Volume 11.6 fL (9.1-12.4); NEUTROPHILS ABSOLUTE AUTO 9.72 K/mm3 (1.96-9.15); NEUTROPHILS PERCENT AUTO 87 % (41-73); Platelet Count 79 K/mm3 (150-400); RDW Coefficient Variation 13.6 % (11.7-14.2); RDW Standard Deviation 47.6 fL (35.1-46.3); Red Blood Cell Count 4.06 M/mm3 (4.30-5.90); White Blood Cell Count 11.21 K/mm3 (4.00-11.30)
[2021-09-07 05:13] LABS: Albumin, Blood 2.4 g/dL (3.4-5.0); Anion Gap 3 mmol/L (6-16); Blood Urea Nitrogen 25 mg/dL (8-24); CO2, Blood 27 mmol/L (21-32); Calcium, Blood 9.2 mg/dL (8.5-10.1); Chloride, Blood 105 mmol/L (98-108); Creatinine, Blood 1.25 mg/dL (0.60-1.20); Glomerular Filtration Rate 64 (60-); Glucose, Blood 105 mg/dL (70-99); Magnesium, Blood 2.2 mg/dL (1.6-2.4); Phosphorus, Blood 2.3 mg/dL (2.5-4.9); Potassium, Blood 4.4 mmol/L (3.5-5.5); Sodium, Blood 135 mmol/L (136-145)
--- NOTE | 2021-09-07 17:49 | NUR ---
PATIENT APPEARS TO BE FEELING WELL. HE IS ALERT AND ORIENTATED WITH SENSE OF HUMOR INTACT. LEG REDNESS IS SMALLER THAN YESTERDAY. THE LOWER RIGHT LEG IS STILL RED, AND INFLAMMED. A JORDAN SOCK WAS ORDERED ONLY FOR COMFORT, SO THE PATIENT CAN USE IT FOR A COUPLE HOURS AT A TIME AND THEN IT CAN BE REMOVED. THE JORDAN DOES INCREASE THE REDNESS. GROIN YEAST IS HEALING. PATIENT CAN MOVE HIS FOOT TODAY, WHICH HE WAS UNABLE TO DO YESTERDAY. HE HAS NO OTHER COMPLAINTS.
--- NOTE | 2021-09-08 04:21 | NUR ---
SHIFT SUMMARY PT HAD AN UNEVENTFUL NIGHT. SLEPT OFF AND ON. CONTINUES WITH PAIN TO RLE, IMPROVED WITH JORDAN JUAREZ PER PATIENT. WAS MEDICATED JUST BEFORE SHIFT CHANGE BY DAY RN AND HAS DENIED ANY NEED FOR PAIN MEDICATION SO FAR THIS EVENING. RASH TO GROIN CONTINUES TO IMPROVE. VITAL SIGNS STABLE. NO ACUTE CHANGES THIS EVENING.
[2021-09-08 05:25] LABS: BASOPHILS ABSOLUTE AUTO 0.03 K/mm3 (0.00-0.23); BASOPHILS PERCENT AUTO 0 % (0-2); EOSINOPHILS ABSOLUTE AUTO 0.15 K/mm3 (0.00-0.68); EOSINOPHILS PERCENT AUTO 2 % (0-6); Hematocrit 38.3 % (37.0-53.0); Hemoglobin 12.5 g/dL (13.5-17.5); IMMATURE GRAN ABSOLUTE AUTO 0.09 K/mm3 (0.00-0.10); IMMATURE GRAN PERCENT AUTO 1 % (0-1); LYMPHOCYTES ABSOLUTE AUTO 0.92 K/mm3 (0.84-5.20); LYMPHOCYTES PERCENT AUTO 10 % (21-46); MONOCYTES ABSOLUTE AUTO 0.37 K/mm3 (0.16-1.47); MONOCYTES PERCENT AUTO 4 % (4-13); Mean Corpuscular HGB 30.6 pg (26.0-34.0); Mean Corpuscular HGB Conc 32.6 g/dL (31.5-36.5); Mean Corpuscular Volume 94 fL (80-100); NEUTROPHILS ABSOLUTE AUTO 7.72 K/mm3 (1.96-9.15); NEUTROPHILS PERCENT AUTO 83 % (41-73); Platelet Count 98 K/mm3 (150-400); RDW Coefficient Variation 13.2 % (11.7-14.2); RDW Standard Deviation 45.3 fL (35.1-46.3); Red Blood Cell Count 4.08 M/mm3 (4.30-5.90); White Blood Cell Count 9.28 K/mm3 (4.00-11.30)
[2021-09-08 05:53] LABS: Albumin, Blood 2.3 g/dL (3.4-5.0); Anion Gap 6 mmol/L (6-16); Blood Urea Nitrogen 22 mg/dL (8-24); Bun/Creatinine Ratio 19.8 (12.0-20.0); CO2, Blood 27 mmol/L (21-32); Calcium, Blood 9.1 mg/dL (8.5-10.1); Chloride, Blood 104 mmol/L (98-108); Creatinine, Blood 1.11 mg/dL (0.60-1.20); Glomerular Filtration Rate 73 (60-); Glucose, Blood 103 mg/dL (70-99); Magnesium, Blood 2.3 mg/dL (1.6-2.4); Phosphorus, Blood 2.2 mg/dL (2.5-4.9); Potassium, Blood 4.2 mmol/L (3.5-5.5); Sodium, Blood 137 mmol/L (136-145)
--- NOTE | 2021-09-08 17:20 | NUR ---
PATIENT'S RIGHT LOWER LEG HAS INCREASED REDNESS TODAY. THE SIZE OF THE REDNESS IS SMALLER THAN YESTERDAY HOWEVER. THE LEG IS PAINFUL AT TIMES, BUT TORODOL WORKS WELL TO ALLEVIATE. THIS AM DURING MORNING MEDICATION PASS, PATIENT BEGAN TO CHOKE ON HIS MEDS, AND SPIT SOME OUT. DR. SAHU WAS ON THE FLOOR, SO HE STATED TO NOT REPEAT ANY MEDICATION. PATIENT VS PRETTY GOOD ALL SHIFT. THE REST OF MEDICATIONS WERE GIVEN AND SWALLOWED WITHOUT INCIDENT. MOOD IS GOOD, PATIENT IS PLEASANT AND COOPERATIVE.
--- NOTE | 2021-09-09 05:03 | NUR ---
UNIT REACTOR OPERATOR SUMMARY ADMITTED FOR CELLULITIS OF THE RLE. HE IS A FULL CODE. THE PATIENT IS RECEIVING IV ABX AND SHOWS IMPROVEMENT PER THE DEMARCATION ON HIS RLE; PT REPORTS THAT HE DOES NOT FEEL HE IS IMPROVING AND "THEY SHOULD GIVE ME SOME STRONGER ANTIBIOTICS." HE HAS BEEN INDEPENDENT WITH THE URINAL. MEDICATED X1 WITH IV TORADOL WITH GOOD PAIN MANAGEMENT. TELE HAS BEEN SINUS ÁNGELA IN THE HIGH 50S. NO ACUTE EVENTS THIS SHIFT.
[2021-09-09 05:47] LABS: BASOPHILS ABSOLUTE AUTO 0.03 K/mm3 (0.00-0.23); BASOPHILS PERCENT AUTO 1 % (0-2); EOSINOPHILS ABSOLUTE AUTO 0.14 K/mm3 (0.00-0.68); EOSINOPHILS PERCENT AUTO 2 % (0-6); Hematocrit 37.3 % (37.0-53.0); Hemoglobin 12.6 g/dL (13.5-17.5); IMMATURE GRAN ABSOLUTE AUTO 0.07 K/mm3 (0.00-0.10); IMMATURE GRAN PERCENT AUTO 1 % (0-1); LYMPHOCYTES ABSOLUTE AUTO 0.85 K/mm3 (0.84-5.20); LYMPHOCYTES PERCENT AUTO 13 % (21-46); MONOCYTES ABSOLUTE AUTO 0.32 K/mm3 (0.16-1.47); MONOCYTES PERCENT AUTO 5 % (4-13); Mean Corpuscular HGB 31.1 pg (26.0-34.0); Mean Corpuscular HGB Conc 33.8 g/dL (31.5-36.5); Mean Corpuscular Volume 92 fL (80-100); Mean Platelet Volume 10.9 fL (9.1-12.4); NEUTROPHILS PERCENT AUTO 78 % (41-73); Platelet Count 97 K/mm3 (150-400); RDW Standard Deviation 44.5 fL (35.1-46.3); Red Blood Cell Count 4.05 M/mm3 (4.30-5.90); White Blood Cell Count 6.41 K/mm3 (4.00-11.30)
[2021-09-09 06:15] LABS: Albumin, Blood 2.4 g/dL (3.4-5.0); Anion Gap 5 mmol/L (6-16); Blood Urea Nitrogen 27 mg/dL (8-24); Bun/Creatinine Ratio 26.2 (12.0-20.0); CO2, Blood 25 mmol/L (21-32); Calcium, Blood 9.2 mg/dL (8.5-10.1); Chloride, Blood 107 mmol/L (98-108); Creatinine, Blood 1.03 mg/dL (0.60-1.20); Glomerular Filtration Rate 80 (60-); Glucose, Blood 118 mg/dL (70-99); Magnesium, Blood 2.2 mg/dL (1.6-2.4); Phosphorus, Blood 2.7 mg/dL (2.5-4.9); Potassium, Blood 4.3 mmol/L (3.5-5.5); Sodium, Blood 137 mmol/L (136-145)
--- NOTE | 2021-09-09 18:36 | NUR ---
SHIFT SUMMARY PTS CELLUYLITIS IS IMSPROVING. NO LONGER HOT TO THE TOUCH AND HAS FADED BACK FROM THE LINE DRAWN PREVIOUSLY. PT ALSO STATES HE HAS BETTER MOBILITY IN THE FOOT AND ANKLE, BUT STILL EXPERIENCES PAIN WHEN WALKING. HE WAS EAGER TO GO HOME TODAY HE RECIEVED BAD NEWS ABOUT HIS FINANCIALS AND WAS EAGER TO COMFORT HIS WHO WAS VERY UPSET, BUT HE WAS AGREEABLE TO STAY AND RECIEVE IV ABX TO IMPROVE HIS CHANCES OF REDUCED INFECTION. BED IN LOWEST POSITION AND CALL LIGHT IN REACH.
--- NOTE | 2021-09-10 04:16 | NUR ---
SHIFT SUMMARY 65 YR M ADMITTED ON 09/05/21 FOR CELLULITIS OF THE LOWER RIGHT LEG. FULL CODE. NO ACUTE CHANGES THIS SHIFT. PT STATES HIS LEG IS FEELING BETTER . NO C/O PAIN THIS SHIFT. HE IS [LEASANT AND COOPERATIVE WITH CARE.
[2021-09-10 05:46] LABS: BASOPHILS ABSOLUTE AUTO 0.06 K/mm3 (0.00-0.23); BASOPHILS PERCENT AUTO 1 % (0-2); EOSINOPHILS ABSOLUTE AUTO 0.17 K/mm3 (0.00-0.68); EOSINOPHILS PERCENT AUTO 3 % (0-6); Hematocrit 39.4 % (37.0-53.0); Hemoglobin 13.4 g/dL (13.5-17.5); IMMATURE GRAN ABSOLUTE AUTO 0.13 K/mm3 (0.00-0.10); IMMATURE GRAN PERCENT AUTO 2 % (0-1); LYMPHOCYTES ABSOLUTE AUTO 1.03 K/mm3 (0.84-5.20); LYMPHOCYTES PERCENT AUTO 15 % (21-46); MONOCYTES ABSOLUTE AUTO 0.38 K/mm3 (0.16-1.47); MONOCYTES PERCENT AUTO 6 % (4-13); Mean Corpuscular HGB 31.2 pg (26.0-34.0); Mean Corpuscular Volume 92 fL (80-100); Mean Platelet Volume 11.2 fL (9.1-12.4); NEUTROPHILS ABSOLUTE AUTO 5.01 K/mm3 (1.96-9.15); NEUTROPHILS PERCENT AUTO 74 % (41-73); Platelet Count 118 K/mm3 (150-400); RDW Standard Deviation 43.6 fL (35.1-46.3); White Blood Cell Count 6.78 K/mm3 (4.00-11.30)
[2021-09-10 06:06] LABS: Albumin, Blood 2.6 g/dL (3.4-5.0); Anion Gap 5 mmol/L (6-16); Blood Urea Nitrogen 20 mg/dL (8-24); Bun/Creatinine Ratio 20.9 (12.0-20.0); CO2, Blood 25 mmol/L (21-32); Calcium, Blood 9.7 mg/dL (8.5-10.1); Chloride, Blood 107 mmol/L (98-108); Creatinine, Blood 0.96 mg/dL (0.60-1.20); Glomerular Filtration Rate 87 (60-); Glucose, Blood 123 mg/dL (70-99); Phosphorus, Blood 2.8 mg/dL (2.5-4.9); Potassium, Blood 4.5 mmol/L (3.5-5.5); Sodium, Blood 137 mmol/L (136-145)
[2021-09-10] MEDS ORDERED: Acerola C500 MG PO (15:07)
[2021-09-10] MEDS ORDERED: NEBI10 PO (15:08)
[2021-09-10] MEDS ORDERED: LACT PO (15:10)
[2021-09-10] MEDS ORDERED: CARV6.25 PO (15:10)
[2021-09-10] MEDS ORDERED: SULTRIDS PO (15:11)
== END 2021-09-10 15:35 | disposition home or self-care (01) | DRG 872 ==
LOC: ER 14:08 → MEDS 19:50
PROVIDERS: Family Medicine; Student in an Organized Health Care Education/Training Program; ADMIT Family Medicine
DX: A41.9 Sepsis, unspecified organism (principal); L03.115 Cellulitis of right lower limb; E87.1 Hypo-osmolality and hyponatremia; I25.10 Atherosclerotic heart disease of native coronary artery without angina pectoris; I50.9 Heart failure, unspecified; E78.00 Pure hypercholesterolemia, unspecified; I89.1 Lymphangitis; I11.0 Hypertensive heart disease with heart failure; E11.9 Type 2 diabetes mellitus without complications; D69.6 Thrombocytopenia, unspecified; B37.2 Candidiasis of skin and nail; I25.2 Old myocardial infarction; Z95.5 Presence of coronary angioplasty implant and graft; Z98.890 Other specified postprocedural states; Z87.891 Personal history of nicotine dependence; Z88.8 Allergy status to other drugs, medicaments and biological substances; Z79.82 Long term (current) use of aspirin; Z79.899 Other long term (current) drug therapy; Z79.811 Long term (current) use of aromatase inhibitors
CPT/HCPCS: 36415; 71045; 80048; 80053; 80069; 83605; 83690; 83735; 83880; 84484; 85025; 87040; 93005; 93010; 96374; 96375; 99285-25; A9270; J0690; J1650; J1885; J2405; J7030

== ENCOUNTER 2021-10-04 08:32 | Inpatient (IN) | payer MEDICARE ==
[~2021-10-04] VITALS: Ht 175.3 cm; Wt 112.2 kg
[~2021-10-04 08:32] MED LIST changes: +Acerola C500 MG PO; +CARV6.25 PO; +LACT PO; +SULTRIDS PO
[2021-10-04 09:39] LABS: Albumin, Blood 2.9 g/dL (3.4-5.0); Albumin/Globulin Ratio 0.5 (0.8-1.8); Bilirubin, Total 0.5 mg/dL (0.1-1.0); Bun/Creatinine Ratio 32.1 (12.0-20.0); Calcium, Blood 9.7 mg/dL (8.5-10.1); Creatinine, Blood 1.12 mg/dL (0.60-1.20); Globulin, Blood 5.4 g/dL (2.2-4.0); Potassium, Blood 4.4 mmol/L (3.5-5.5); Total Protein, Blood 8.3 g/dL (6.4-8.2)
[2021-10-04 10:01] LABS: BASOPHILS ABSOLUTE AUTO 0.04 K/mm3 (0.00-0.23); BASOPHILS PERCENT AUTO 1 % (0-2); EOSINOPHILS ABSOLUTE AUTO 0.17 K/mm3 (0.00-0.68); EOSINOPHILS PERCENT AUTO 2 % (0-6); Hematocrit 35.9 % (37.0-53.0); Hemoglobin 11.8 g/dL (13.5-17.5); IMMATURE GRAN ABSOLUTE AUTO 0.17 K/mm3 (0.00-0.10); IMMATURE GRAN PERCENT AUTO 2 % (0-1); LYMPHOCYTES ABSOLUTE AUTO 0.98 K/mm3 (0.84-5.20); LYMPHOCYTES PERCENT AUTO 12 % (21-46); MONOCYTES ABSOLUTE AUTO 0.49 K/mm3 (0.16-1.47); MONOCYTES PERCENT AUTO 6 % (4-13); Mean Corpuscular HGB 31.3 pg (26.0-34.0); Mean Corpuscular HGB Conc 32.9 g/dL (31.5-36.5); Mean Corpuscular Volume 95 fL (80-100); NEUTROPHILS ABSOLUTE AUTO 6.22 K/mm3 (1.96-9.15); NEUTROPHILS PERCENT AUTO 77 % (41-73); RDW Coefficient Variation 14.5 % (11.7-14.2); Red Blood Cell Count 3.77 M/mm3 (4.30-5.90); White Blood Cell Count 8.07 K/mm3 (4.00-11.30)
[2021-10-04 10:15] LABS: Platelet Count 1 K/mm3 (150-400)
[2021-10-04 10:52] LABS: International Normalized Ratio 1.01; Prothrombin Time Results 10.6 Sec (9.7-11.5)
[2021-10-04 15:17] LABS: BASOPHILS ABSOLUTE AUTO 0.03 K/mm3 (0.00-0.23); BASOPHILS PERCENT AUTO 0 % (0-2); EOSINOPHILS ABSOLUTE AUTO 0.13 K/mm3 (0.00-0.68); EOSINOPHILS PERCENT AUTO 2 % (0-6); Hematocrit 34.8 % (37.0-53.0); IMMATURE GRAN ABSOLUTE AUTO 0.13 K/mm3 (0.00-0.10); IMMATURE GRAN PERCENT AUTO 2 % (0-1); LYMPHOCYTES ABSOLUTE AUTO 1.16 K/mm3 (0.84-5.20); LYMPHOCYTES PERCENT AUTO 16 % (21-46); MONOCYTES ABSOLUTE AUTO 0.38 K/mm3 (0.16-1.47); MONOCYTES PERCENT AUTO 5 % (4-13); Mean Corpuscular HGB 30.6 pg (26.0-34.0); Mean Corpuscular HGB Conc 31.6 g/dL (31.5-36.5); Mean Corpuscular Volume 97 fL (80-100); Mean Platelet Volume 11.2 fL (9.1-12.4); NEUTROPHILS ABSOLUTE AUTO 5.25 K/mm3 (1.96-9.15); NEUTROPHILS PERCENT AUTO 74 % (41-73); RDW Coefficient Variation 14.6 % (11.7-14.2); RDW Standard Deviation 52.2 fL (35.1-46.3); Red Blood Cell Count 3.59 M/mm3 (4.30-5.90); White Blood Cell Count 7.08 K/mm3 (4.00-11.30)
[2021-10-04 15:19] LABS: Platelet Count 10 K/mm3 (150-400)
--- NOTE | 2021-10-04 18:10 | NUR ---
SHIFT SUMMARY PT HAS BEEN RESTING IN BED SINCE ARRIVING TO THE UNIT. PT HAS BEEN PLEASANT AND COOPERATIVE WITH CARES. PT HAS ASKED QUESTIONS ABOUT THEIR PLAN OF CARE. SBP HAS BEEN IN THE 140'S, HEART RATE 50-60'S, AND SPO2 >95% ON ROOM AIR. PT HAS GOOD ORAL INTAKE OF FLUIDS AND INDEPENDENTLY VOIDED WITH URINAL. AFTER VENIPUNCTURE LAB DRAW, SITE CONTINUED TO LEAK FOR SEVERAL MINUTES AFTER, A COMPRESSION BANDAGE AND GAUZE WAS USED TO DRESS THE SITE.
[2021-10-05 03:41] LABS: BASOPHILS ABSOLUTE AUTO 0.04 K/mm3 (0.00-0.23); BASOPHILS PERCENT AUTO 1 % (0-2); EOSINOPHILS ABSOLUTE AUTO 0.18 K/mm3 (0.00-0.68); EOSINOPHILS PERCENT AUTO 3 % (0-6); Hematocrit 34.1 % (37.0-53.0); Hemoglobin 11.2 g/dL (13.5-17.5); IMMATURE GRAN PERCENT AUTO 2 % (0-1); LYMPHOCYTES ABSOLUTE AUTO 1.02 K/mm3 (0.84-5.20); LYMPHOCYTES PERCENT AUTO 16 % (21-46); MONOCYTES ABSOLUTE AUTO 0.36 K/mm3 (0.16-1.47); MONOCYTES PERCENT AUTO 6 % (4-13); Mean Corpuscular HGB 31.1 pg (26.0-34.0); Mean Corpuscular HGB Conc 32.8 g/dL (31.5-36.5); Mean Corpuscular Volume 95 fL (80-100); NEUTROPHILS ABSOLUTE AUTO 4.72 K/mm3 (1.96-9.15); NEUTROPHILS PERCENT AUTO 74 % (41-73); RDW Coefficient Variation 14.4 % (11.7-14.2); White Blood Cell Count 6.42 K/mm3 (4.00-11.30)
[2021-10-05 03:51] LABS: Albumin, Blood 2.8 g/dL (3.4-5.0); Albumin/Globulin Ratio 0.6 (0.8-1.8); Bilirubin, Total 0.4 mg/dL (0.1-1.0); Bun/Creatinine Ratio 27.5 (12.0-20.0); Calcium, Blood 9.2 mg/dL (8.5-10.1); Creatinine, Blood 1.02 mg/dL (0.60-1.20); Globulin, Blood 4.9 g/dL (2.2-4.0); Potassium, Blood 4.6 mmol/L (3.5-5.5); Total Protein, Blood 7.7 g/dL (6.4-8.2)
[2021-10-05 04:01] LABS: Platelet Count 3 K/mm3 (150-400)
--- NOTE | 2021-10-05 05:55 | NUR ---
SHIFT SUMMARY A/OX4, SBA TO BATHROOM D/T INCREASED RISK FOR BLEEDING. DENIES PAIN OR SOB. CELLULITIS NOTED TO RLE THAT HAS IMPROVED SINCE PREVIOUS HOSPITAL STAY. TELE SR IN THE 60S. CRITICAL LOW PLATELET OF 3, ORDER TO TRANSFUSE 1 UNIT. VSS, BED IN LOWEST POSITION WITH CALL LIGHT IN REACH. WILL CONTINUE TO MONITOR AND REPORT TO ONCOMING RN.
--- NOTE | 2021-10-05 15:00 | NUR ---
TRANSFER NOTE PT IS A/Ox4 AND FOLLOWS DIRECTIONS FROM STAFF. PT DID NOT DEMONSTRATE ANY MORE SIGNS OF BLEEDING. BM THIS AM WAS BROWN AND FORMED. PT'S BP AND O2 SAT WERE STABLE UPON TRANSFER. PT TRANSFERRED TO WHEEL CHAIR WITH NO REPORTS OF DIZZYNESS OR CP. GAVE REPORT TO YAMINI ON MEDICAL FLOOR. ANSWERED ALL QUESTIONS PERTAINING TO THE PT. PT'S VSS AND NADN UPON TRANSFER.
--- NOTE | 2021-10-05 15:17 | NUR ---
Upon receiving a referral for spiritual care, I visit pt. Pt immediately tells me about his medical history, current problems and the plan of care going forward. 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 He talks about his Sabianism Gnosticism stone and how he draws strength from his prayers and Bible promises in times challenging times. He admits to the fears of possibly dying when he first came in and was thankful that he could trust in God and continue to do so as he moves closer to recovery. He expresses his gratitude for his and the medical staff for all their help and care. I provide therapeutic listening and prayer. Pt responds well and shows signs of an elevated mood. I will continue to remain available to pateint and family.
--- NOTE | 2021-10-05 18:33 | NUR ---
SHIFT SUMMARY 1500 RECEIVED PT TO RM 312 VIA W/C FROM PCU 5. A&O, PLEASANT AND CO-OP. ABLE TO TX SELF TO BED. ADMITTED FOR THROMBOCYTOPENIA, BEING MONITORED AT THIS TIME. VSS AT THIS TIME; SEE CHART. PER REPORT, PT'S PLATELETS TO REMAIN > 10 FOR 24 HRS BEFORE GOING HOME. NO C/O. RESTING QUIETLY WATCHING TV AND TALKING ON PHONE. CALL LT IN REACH.
[2021-10-06 05:44] LABS: Hematocrit 35.2 % (37.0-53.0); Hemoglobin 11.5 g/dL (13.5-17.5); Mean Corpuscular HGB 31.3 pg (26.0-34.0); Mean Corpuscular HGB Conc 32.7 g/dL (31.5-36.5); Mean Corpuscular Volume 96 fL (80-100); RDW Coefficient Variation 14.5 % (11.7-14.2); RDW Standard Deviation 50.8 fL (35.1-46.3); Red Blood Cell Count 3.67 M/mm3 (4.30-5.90); White Blood Cell Count 6.76 K/mm3 (4.00-11.30)
[2021-10-06 05:53] LABS: Mean Platelet Volume 13.1 fL (9.1-12.4)
[2021-10-06 05:54] LABS: Platelet Count 9 K/mm3 (150-400)
[2021-10-06 06:07] LABS: BAND PERCENT MAN 1 % (0-8); BASOPHILS PERCENT MAN 0 % (0-2); EOSINOPHILS PERCENT MAN 0 % (0-6); LYMPHOCYTES ABSOLUTE MAN 0.54 K/mm3 (0.84-5.20); LYMPHOCYTES PERCENT MAN 8 % (21-46); METAMYELOCYTE ABSOLUTE MAN 0.06 K/mm3 (0.00-0.00); METAMYELOCYTE PERCENT MAN 1 % (0-0); MONOCYTES ABSOLUTE MAN 0.13 K/mm3 (0.16-1.47); MONOCYTES PERCENT MAN 2 % (4-13); MYELOCYTE ABSOLUTE MAN 0.06 K/mm3 (0.00-0.00); MYELOCYTE PERCENT MAN 1 % (0-0); NEUTROPHILS ABSOLUTE MAN 5.94 K/mm3 (1.96-9.15); SEG NEUTROPHILS PERCENT MAN 87 % (41-73); TOTAL CELLS COUNTED 100
--- NOTE | 2021-10-06 06:21 | NUR ---
PT with platelet level of 3 yesterday has critical value platelet 9. Continues on IV abx to tx rt le cellulitis with good improvement noted. Skin care rt le with barrier cream.
[2021-10-06 12:08] LABS: BASOPHILS ABSOLUTE AUTO 0.04 K/mm3 (0.00-0.23); BASOPHILS PERCENT AUTO 1 % (0-2); EOSINOPHILS PERCENT AUTO 2 % (0-6); Hematocrit 35.9 % (37.0-53.0); Hemoglobin 12.2 g/dL (13.5-17.5); IMMATURE GRAN ABSOLUTE AUTO 0.15 K/mm3 (0.00-0.10); IMMATURE GRAN PERCENT AUTO 2 % (0-1); LYMPHOCYTES ABSOLUTE AUTO 1.13 K/mm3 (0.84-5.20); LYMPHOCYTES PERCENT AUTO 14 % (21-46); MONOCYTES PERCENT AUTO 6 % (4-13); Mean Corpuscular HGB 31.5 pg (26.0-34.0); Mean Corpuscular Volume 93 fL (80-100); Mean Platelet Volume 11.7 fL (9.1-12.4); NEUTROPHILS ABSOLUTE AUTO 6.19 K/mm3 (1.96-9.15); NEUTROPHILS PERCENT AUTO 75 % (41-73); RDW Coefficient Variation 14.5 % (11.7-14.2); RDW Standard Deviation 48.9 fL (35.1-46.3); Red Blood Cell Count 3.87 M/mm3 (4.30-5.90); White Blood Cell Count 8.21 K/mm3 (4.00-11.30)
[2021-10-06 12:25] LABS: Platelet Count 16 K/mm3 (150-400)
[2021-10-06 12:54] LABS: Albumin, Blood 3.1 g/dL (3.4-5.0); Albumin/Globulin Ratio 0.6 (0.8-1.8); Bilirubin, Total 0.5 mg/dL (0.1-1.0); Bun/Creatinine Ratio 25.2 (12.0-20.0); Calcium, Blood 9.3 mg/dL (8.5-10.1); Creatinine, Blood 1.03 mg/dL (0.60-1.20); Globulin, Blood 5.5 g/dL (2.2-4.0); Potassium, Blood 4.6 mmol/L (3.5-5.5); Total Protein, Blood 8.6 g/dL (6.4-8.2)
[2021-10-06] MEDS ORDERED: CEPH500 PO (14:23)
--- NOTE | 2021-10-06 16:03 | NUR ---
PT AWAKE AT START OF SHIFT THIS AM. VERY PLEASANT AND CO-OP WITH CARE. INDEPENDENT IN RM AND TO BTHRM. PLATELETS IMPROVED SLIGHTLY FROM YESTERDAY; SEE CHART. DR DICK IN TO SEE PT THIS AM AND DISCUSSED PLAN OF CARE. PT TO RECEIVE 1 UNIT PLATELETS AND THEN HAVE LABS ALFONSO'D. DR DICK THEN PLACED D/C ORDERS WITH INSTRUCTIONS FOR SAFETY AND F/U; SEE CHART. PT AND VERBALIZED UNDERSTANDING. PT ASSISTED OUT VIA W/C WITH AT SIDE.
== END 2021-10-06 15:40 | disposition home or self-care (01) | DRG 813 ==
LOC: ER 08:32 → PCU 11:50 → MEDS 10-05 15:29
PROVIDERS: Emergency Medicine; ADMIT Family Medicine
PROC: 30233R1 Transfusion of Nonautologous Platelets into Peripheral Vein, Percutaneous Approach (ICD-10-PCS; principal; 2021-10-04)
DX: D69.6 Thrombocytopenia, unspecified (principal); K92.2 Gastrointestinal hemorrhage, unspecified; L03.116 Cellulitis of left lower limb; I25.10 Atherosclerotic heart disease of native coronary artery without angina pectoris; I10 Essential (primary) hypertension; E78.5 Hyperlipidemia, unspecified; Z95.5 Presence of coronary angioplasty implant and graft; Z87.891 Personal history of nicotine dependence; Z88.8 Allergy status to other drugs, medicaments and biological substances; Z79.899 Other long term (current) drug therapy; Z79.82 Long term (current) use of aspirin
CPT/HCPCS: 36415; 36430; 80053; 82272; 85007; 85025; 85027; 85379; 85384; 85610; 85730; 86850; 86900; 86901; 96374; 99285-25; A9270; C9113; J0690; J2405; J7030; J7040; J7050; J7120; P9035

== ENCOUNTER 2022-06-02 19:39 | Emergency (ER) | payer MEDICARE ==
[~2022-06-02] VITALS: Ht 175.3 cm; Wt 117.9 kg
[~2022-06-02 19:39] MED LIST changes: +CEPH500 PO
[2022-06-02 20:09] LABS: BASOPHILS ABSOLUTE AUTO 0.04 K/mm3 (0.00-0.23); BASOPHILS PERCENT AUTO 1 % (0-2); EOSINOPHILS ABSOLUTE AUTO 0.11 K/mm3 (0.00-0.68); EOSINOPHILS PERCENT AUTO 2 % (0-6); Hematocrit 40.9 % (37.0-53.0); Hemoglobin 13.4 g/dL (13.5-17.5); IMMATURE GRAN ABSOLUTE AUTO 0.06 K/mm3 (0.00-0.10); IMMATURE GRAN PERCENT AUTO 1 % (0-1); LYMPHOCYTES PERCENT AUTO 17 % (21-46); MONOCYTES ABSOLUTE AUTO 0.44 K/mm3 (0.16-1.47); MONOCYTES PERCENT AUTO 6 % (4-13); Mean Corpuscular HGB 31.1 pg (26.0-34.0); Mean Corpuscular HGB Conc 32.8 g/dL (31.5-36.5); Mean Corpuscular Volume 95 fL (80-100); Mean Platelet Volume 10.9 fL (9.1-12.4); NEUTROPHILS ABSOLUTE AUTO 5.57 K/mm3 (1.96-9.15); NEUTROPHILS PERCENT AUTO 74 % (41-73); Platelet Count 142 K/mm3 (150-400); RDW Coefficient Variation 13.9 % (11.7-14.2); RDW Standard Deviation 48.6 fL (35.1-46.3); Red Blood Cell Count 4.31 M/mm3 (4.30-5.90); White Blood Cell Count 7.52 K/mm3 (4.00-11.30)
[2022-06-02 20:28] LABS: Albumin, Blood 2.9 g/dL (3.4-5.0); Albumin/Globulin Ratio 0.6 (0.8-1.8); Bilirubin, Total 0.4 mg/dL (0.1-1.0); Bun/Creatinine Ratio 19.2 (12.0-20.0); Calcium, Blood 9.3 mg/dL (8.5-10.1); Creatinine, Blood 1.04 mg/dL (0.60-1.20); Potassium, Blood 4.6 mmol/L (3.5-5.5); Total Protein, Blood 7.9 g/dL (6.4-8.2)
[2022-06-02 21:30] VITALS: BP 129/81
== END 2022-06-02 21:52 | disposition home or self-care (01) ==
LOC: ER 19:39
PROVIDERS: Physician Assistant
DX: K42.9 Umbilical hernia without obstruction or gangrene (principal); R16.0 Hepatomegaly, not elsewhere classified; I10 Essential (primary) hypertension; I25.10 Atherosclerotic heart disease of native coronary artery without angina pectoris; I25.2 Old myocardial infarction; Z88.8 Allergy status to other drugs, medicaments and biological substances; Z79.899 Other long term (current) drug therapy; Z87.891 Personal history of nicotine dependence
CPT/HCPCS: 74177; 80053; 85025; 99284-25; Q9967

== ENCOUNTER 2022-12-03 19:57 | Emergency (ER) | payer MEDICARE ==
[~2022-12-03] VITALS: Ht 175.3 cm; Wt 111.1 kg
[~2022-12-03 19:57] MED LIST changes: +HYDR1TAB94 PO
[2022-12-03 20:28] LABS: BASOPHILS ABSOLUTE AUTO 0.02 K/mm3 (0.00-0.23); BASOPHILS PERCENT AUTO 0 % (0-2); EOSINOPHILS ABSOLUTE AUTO 0.08 K/mm3 (0.00-0.68); EOSINOPHILS PERCENT AUTO 1 % (0-6); Hematocrit 41.2 % (37.0-53.0); Hemoglobin 13.5 g/dL (13.5-17.5); IMMATURE GRAN ABSOLUTE AUTO 0.03 K/mm3 (0.00-0.10); IMMATURE GRAN PERCENT AUTO 0 % (0-1); LYMPHOCYTES ABSOLUTE AUTO 0.42 K/mm3 (0.84-5.20); LYMPHOCYTES PERCENT AUTO 5 % (21-46); MONOCYTES ABSOLUTE AUTO 0.19 K/mm3 (0.16-1.47); MONOCYTES PERCENT AUTO 2 % (4-13); Mean Corpuscular HGB Conc 32.8 g/dL (31.5-36.5); Mean Corpuscular Volume 95 fL (80-100); Mean Platelet Volume 10.8 fL (9.1-12.4); NEUTROPHILS ABSOLUTE AUTO 7.42 K/mm3 (1.96-9.15); NEUTROPHILS PERCENT AUTO 91 % (41-73); Platelet Count 125 K/mm3 (150-400); RDW Coefficient Variation 14.3 % (11.7-14.2); RDW Standard Deviation 49.6 fL (35.1-46.3); Red Blood Cell Count 4.36 M/mm3 (4.30-5.90); White Blood Cell Count 8.16 K/mm3 (4.00-11.30)
[2022-12-03 20:47] LABS: Albumin, Blood 3.1 g/dL (3.4-5.0); Albumin/Globulin Ratio 0.6 (0.8-1.8); Bilirubin, Total 0.7 mg/dL (0.1-1.0); Bun/Creatinine Ratio 13.1 (12.0-20.0); Calcium, Blood 9.3 mg/dL (8.5-10.1); Creatinine, Blood 1.07 mg/dL (0.60-1.20); Globulin, Blood 5.6 g/dL (2.2-4.0); Total Protein, Blood 8.7 g/dL (6.4-8.2)
[2022-12-03 22:06] LABS: Influenza A, PCR NEGATIVE (NEGATIVE); Influenza B, PCR NEGATIVE (NEGATIVE); Resp Syncytial Virus, PCR NEGATIVE (NEGATIVE); SARS-Cov-2 (COVID-19) PCR, MMC NEGATIVE (NEGATIVE)
[2022-12-04] VITALS: BP 133/60
[2022-12-05] MEDS ORDERED: ASPI81CH PO (14:06)
[2022-12-05] MEDS ORDERED: OXAYDO5 M1 PO (14:09)
[2022-12-05] MEDS ORDERED: TIZA4 PO (14:22)
== END 2022-12-04 01:19 | disposition home or self-care (01) ==
LOC: ER 19:57
PROVIDERS: Emergency Medicine
DX: R07.9 Chest pain, unspecified (principal); Z20.822 Contact with and (suspected) exposure to COVID-19; I10 Essential (primary) hypertension; I25.2 Old myocardial infarction; Z95.5 Presence of coronary angioplasty implant and graft; Z88.1 Allergy status to other antibiotic agents; Z88.8 Allergy status to other drugs, medicaments and biological substances; Z79.82 Long term (current) use of aspirin; Z79.899 Other long term (current) drug therapy
CPT/HCPCS: 0241U; 71045; 71260; 80053; 84484; 85025; 85379; 93005; 93010; 99285-25; A9270; Q9967

== ENCOUNTER 2022-12-04 20:46 | Observation (INO) | payer OTHER ==
[~2022-12-04] VITALS: Ht 175.3 cm; Wt 109.2 kg
[2022-12-04 21:08] LABS: BASOPHILS ABSOLUTE AUTO 0.01 K/mm3 (0.00-0.23); BASOPHILS PERCENT AUTO 0 % (0-2); EOSINOPHILS ABSOLUTE AUTO 0.02 K/mm3 (0.00-0.68); EOSINOPHILS PERCENT AUTO 0 % (0-6); Hematocrit 39.6 % (37.0-53.0); Hemoglobin 12.7 g/dL (13.5-17.5); IMMATURE GRAN ABSOLUTE AUTO 0.04 K/mm3 (0.00-0.10); IMMATURE GRAN PERCENT AUTO 1 % (0-1); LYMPHOCYTES ABSOLUTE AUTO 0.77 K/mm3 (0.84-5.20); LYMPHOCYTES PERCENT AUTO 14 % (21-46); MONOCYTES ABSOLUTE AUTO 0.35 K/mm3 (0.16-1.47); MONOCYTES PERCENT AUTO 6 % (4-13); Mean Corpuscular HGB Conc 32.1 g/dL (31.5-36.5); Mean Corpuscular Volume 94 fL (80-100); Mean Platelet Volume 10.8 fL (9.1-12.4); NEUTROPHILS ABSOLUTE AUTO 4.46 K/mm3 (1.96-9.15); NEUTROPHILS PERCENT AUTO 79 % (41-73); Platelet Count 111 K/mm3 (150-400); RDW Coefficient Variation 14.4 % (11.7-14.2); RDW Standard Deviation 49.4 fL (35.1-46.3); Red Blood Cell Count 4.23 M/mm3 (4.30-5.90); White Blood Cell Count 5.65 K/mm3 (4.00-11.30)
[2022-12-04 21:28] LABS: Albumin, Blood 2.9 g/dL (3.4-5.0); Albumin/Globulin Ratio 0.5 (0.8-1.8); Bilirubin, Total 0.4 mg/dL (0.1-1.0); Bun/Creatinine Ratio 13.2 (12.0-20.0); Calcium, Blood 9.6 mg/dL (8.5-10.1); Creatinine, Blood 1.06 mg/dL (0.60-1.20); Globulin, Blood 5.6 g/dL (2.2-4.0); Potassium, Blood 3.8 mmol/L (3.5-5.5); Total Protein, Blood 8.5 g/dL (6.4-8.2)
[2022-12-05] VITALS (7 sets, daily range): BP systolic 139–166; BP diastolic 72–85
[2022-12-05 00:40] LABS: Anti-Xa UFH, PHA Monitoring <0.10 IU/mL; International Normalized Ratio 1.06; Prothrombin Time Results 11.1 Sec (9.7-11.5)
[2022-12-05 05:52] LABS: BASOPHILS ABSOLUTE AUTO 0.01 K/mm3 (0.00-0.23); BASOPHILS PERCENT AUTO 0 % (0-2); EOSINOPHILS ABSOLUTE AUTO 0.03 K/mm3 (0.00-0.68); EOSINOPHILS PERCENT AUTO 1 % (0-6); Hemoglobin 12.1 g/dL (13.5-17.5); IMMATURE GRAN ABSOLUTE AUTO 0.02 K/mm3 (0.00-0.10); IMMATURE GRAN PERCENT AUTO 1 % (0-1); LYMPHOCYTES ABSOLUTE AUTO 0.88 K/mm3 (0.84-5.20); LYMPHOCYTES PERCENT AUTO 23 % (21-46); MONOCYTES ABSOLUTE AUTO 0.43 K/mm3 (0.16-1.47); MONOCYTES PERCENT AUTO 11 % (4-13); Mean Corpuscular HGB 30.9 pg (26.0-34.0); Mean Corpuscular HGB Conc 32.7 g/dL (31.5-36.5); Mean Corpuscular Volume 95 fL (80-100); Mean Platelet Volume 10.9 fL (9.1-12.4); NEUTROPHILS ABSOLUTE AUTO 2.52 K/mm3 (1.96-9.15); NEUTROPHILS PERCENT AUTO 65 % (41-73); Platelet Count 101 K/mm3 (150-400); RDW Coefficient Variation 14.2 % (11.7-14.2); RDW Standard Deviation 49.4 fL (35.1-46.3); Red Blood Cell Count 3.91 M/mm3 (4.30-5.90); White Blood Cell Count 3.89 K/mm3 (4.00-11.30)
[2022-12-05 06:11] LABS: Albumin, Blood 2.6 g/dL (3.4-5.0); Albumin/Globulin Ratio 0.5 (0.8-1.8); Bilirubin, Total 0.3 mg/dL (0.1-1.0); Bun/Creatinine Ratio 11.7 (12.0-20.0); Calcium, Blood 9.2 mg/dL (8.5-10.1); Creatinine, Blood 1.2 mg/dL (0.60-1.20); Globulin, Blood 5.2 g/dL (2.2-4.0); Total Protein, Blood 7.8 g/dL (6.4-8.2)
--- NOTE | 2022-12-05 06:25 | NUR ---
EOS: NO CHANGES FROM ADMISSION ASSESSMENT. NO LONGER ON HEPARIN GTT STRESS TEST THIS AM. NO CARDIOLOGY CONSULT UNTIL AFTER STRESS AND IF NEEDED. PATIENT ALERT AND ORIENTED X 4 PLEASANT AND COOPERATIVE. CHEST PAIN IMPROVED WITH MORPHINE, TROP NEGATIVE.
[2022-12-05] MEDS ORDERED: ASPI81CH PO (14:06)
[2022-12-05] MEDS ORDERED: OXAYDO5 M1 PO (14:09)
[2022-12-05] MEDS ORDERED: TIZA4 PO (14:22)
== END 2022-12-05 15:00 | disposition home or self-care (01) ==
LOC: ER 20:46 → PCU 20:47
PROVIDERS: Student in an Organized Health Care Education/Training Program; ADMIT Student in an Organized Health Care Education/Training Program
DX: I25.118 Atherosclerotic heart disease of native coronary artery with other forms of angina pectoris (principal); I10 Essential (primary) hypertension; I25.2 Old myocardial infarction; Z87.891 Personal history of nicotine dependence
CPT/HCPCS: 36415; 71045; 78452; 80053; 83735; 84484; 85025; 85520; 85610; 93005; 93010; 93017; 94760; 96365; 96375; 99285-25; A9270; A9500; G0378; J0280; J1644; J2270; J2785

== ENCOUNTER 2023-05-13 20:48 | Emergency (ER) | payer MEDICARE ==
[~2023-05-13] VITALS: Ht 177.8 cm; Wt 102.1 kg
[~2023-05-13 20:48] MED LIST changes: +ASPI81CH PO; +OXAYDO5 M1 PO; +TIZA4 PO
[2023-05-13 21:56] LABS: BASOPHILS ABSOLUTE AUTO 0.04 K/mm3 (0.00-0.23); BASOPHILS PERCENT AUTO 1 % (0-2); EOSINOPHILS ABSOLUTE AUTO 0.24 K/mm3 (0.00-0.68); EOSINOPHILS PERCENT AUTO 4 % (0-6); Hematocrit 36.4 % (37.0-53.0); Hemoglobin 11.7 g/dL (13.5-17.5); IMMATURE GRAN ABSOLUTE AUTO 0.04 K/mm3 (0.00-0.10); IMMATURE GRAN PERCENT AUTO 1 % (0-1); LYMPHOCYTES ABSOLUTE AUTO 0.58 K/mm3 (0.84-5.20); LYMPHOCYTES PERCENT AUTO 10 % (21-46); MONOCYTES PERCENT AUTO 7 % (4-13); Mean Corpuscular HGB 31.1 pg (26.0-34.0); Mean Corpuscular HGB Conc 32.1 g/dL (31.5-36.5); Mean Corpuscular Volume 97 fL (80-100); NEUTROPHILS ABSOLUTE AUTO 4.66 K/mm3 (1.96-9.15); NEUTROPHILS PERCENT AUTO 78 % (41-73); Platelet Count 125 K/mm3 (150-400); RDW Standard Deviation 53.4 fL (35.1-46.3); Red Blood Cell Count 3.76 M/mm3 (4.30-5.90); White Blood Cell Count 5.96 K/mm3 (4.00-11.30)
[2023-05-13 22:13] LABS: Albumin, Blood 2.7 g/dL (3.4-5.0); Albumin/Globulin Ratio 0.5 (0.8-1.8); Bilirubin, Total 0.5 mg/dL (0.1-1.0); Bun/Creatinine Ratio 14.7 (12.0-20.0); Calcium, Blood 9.6 mg/dL (8.5-10.1); Creatinine, Blood 1.29 mg/dL (0.60-1.20); Globulin, Blood 5.5 g/dL (2.2-4.0); Magnesium, Blood 2.1 mg/dL (1.6-2.4); Potassium, Blood 4.9 mmol/L (3.5-5.5); Total Protein, Blood 8.2 g/dL (6.4-8.2)
[2023-05-13] MEDS ORDERED: Furosemide 10 MG / ML 2ML Vial IV ONE (22:50)
[2023-05-13] MEDS ORDERED: CefTRIAXone Sodium 1,000 MG in NS 50 ML IV ONE (22:50)
[2023-05-13] MEDS ORDERED: CEPH500 PO (22:52)
[2023-05-13 23:45] VITALS: BP 145/60
== END 2023-05-14 00:17 | disposition home or self-care (01) ==
LOC: ER 20:48
PROVIDERS: Physician Assistant
DX: L03.115 Cellulitis of right lower limb (principal); Z59.89 Other problems related to housing and economic circumstances; Z87.891 Personal history of nicotine dependence; I10 Essential (primary) hypertension; I25.10 Atherosclerotic heart disease of native coronary artery without angina pectoris; I25.2 Old myocardial infarction; Z79.82 Long term (current) use of aspirin; Z79.899 Other long term (current) drug therapy; Z88.1 Allergy status to other antibiotic agents; Z88.2 Allergy status to sulfonamides; Z88.8 Allergy status to other drugs, medicaments and biological substances
CPT/HCPCS: 80053; 83735; 83880; 85025; 93971; 96365; 96375; 99284-25; J0696; J1940

== ENCOUNTER 2023-05-30 18:58 | Emergency (ER) | payer MEDICARE ==
[~2023-05-30] VITALS: Ht 175.3 cm; Wt 108.9 kg
[~2023-05-30 18:58] MED LIST changes: +ACET500 PO; +Ibuprofen600 MG PO; +LEVOFLOXACIN750 MG PO; +LIDO700A20 TOP; +METO50ER PO
[2023-05-30 19:53] VITALS: BP 161/69
[2023-05-30 20:20] LABS: BASOPHILS ABSOLUTE AUTO 0.02 K/mm3 (0.00-0.23); BASOPHILS PERCENT AUTO 0 % (0-2); EOSINOPHILS ABSOLUTE AUTO 0.06 K/mm3 (0.00-0.68); EOSINOPHILS PERCENT AUTO 1 % (0-6); Hematocrit 31.8 % (37.0-53.0); Hemoglobin 10.4 g/dL (13.5-17.5); IMMATURE GRAN ABSOLUTE AUTO 0.05 K/mm3 (0.00-0.10); IMMATURE GRAN PERCENT AUTO 1 % (0-1); LYMPHOCYTES ABSOLUTE AUTO 0.45 K/mm3 (0.84-5.20); LYMPHOCYTES PERCENT AUTO 6 % (21-46); MONOCYTES ABSOLUTE AUTO 0.42 K/mm3 (0.16-1.47); MONOCYTES PERCENT AUTO 6 % (4-13); Mean Corpuscular HGB Conc 32.7 g/dL (31.5-36.5); Mean Corpuscular Volume 98 fL (80-100); Mean Platelet Volume 10.2 fL (9.1-12.4); NEUTROPHILS ABSOLUTE AUTO 6.45 K/mm3 (1.96-9.15); NEUTROPHILS PERCENT AUTO 87 % (41-73); Platelet Count 125 K/mm3 (150-400); RDW Coefficient Variation 15.9 % (11.7-14.2); RDW Standard Deviation 57.1 fL (35.1-46.3); Red Blood Cell Count 3.25 M/mm3 (4.30-5.90); White Blood Cell Count 7.45 K/mm3 (4.00-11.30)
[2023-05-30 20:42] LABS: Albumin, Blood 2.5 g/dL (3.4-5.0); Albumin/Globulin Ratio 0.5 (0.8-1.8); Bilirubin, Total 0.5 mg/dL (0.1-1.0); Bun/Creatinine Ratio 27.6 (12.0-20.0); Calcium, Blood 9.1 mg/dL (8.5-10.1); Creatinine, Blood 1.16 mg/dL (0.60-1.20); Potassium, Blood 4.7 mmol/L (3.5-5.5); Total Protein, Blood 7.5 g/dL (6.4-8.2)
[2023-05-30] MEDS ORDERED: CYCL10 PO (21:43)
[2023-05-30] MEDS ORDERED: Cyclobenzaprine HCl 10 MG Tab PO ONE (21:45)
[2023-05-31] MEDS ORDERED: Nexium40 MG (10:57)
[2023-05-31] MEDS ORDERED: LIDO700A20 TOP (12:18)
[2023-05-31] MEDS ORDERED: CELE100 PO (12:18)
== END 2023-05-30 21:49 | disposition home or self-care (01) ==
LOC: ER 18:58
PROVIDERS: Physician Assistant
DX: R25.2 Cramp and spasm (principal); Z79.82 Long term (current) use of aspirin; Z79.899 Other long term (current) drug therapy
CPT/HCPCS: 80053; 85025; 99283; A9270

== ENCOUNTER 2023-05-31 09:56 | Emergency (ER) | payer MEDICARE ==
[~2023-05-31] VITALS: Ht 175.3 cm; Wt 108.9 kg
[2023-05-31] MEDS ORDERED: Ketorolac Tromethamine 30mg Vial IM ONE (10:30)
[2023-05-31] MEDS ORDERED: Nexium40 MG (10:57)
[2023-05-31 11:30] VITALS: BP 141/57
[2023-05-31] MEDS ORDERED: CELE100 PO (12:18)
[2023-05-31] MEDS ORDERED: LIDO700A20 TOP (12:18)
== END 2023-05-31 13:22 | disposition home or self-care (01) ==
LOC: ER 09:56
DX: M25.511 Pain in right shoulder (principal); I10 Essential (primary) hypertension; I25.10 Atherosclerotic heart disease of native coronary artery without angina pectoris; I25.2 Old myocardial infarction; Z88.8 Allergy status to other drugs, medicaments and biological substances; Z79.82 Long term (current) use of aspirin; Z79.899 Other long term (current) drug therapy; Z95.5 Presence of coronary angioplasty implant and graft; Z96.641 Presence of right artificial hip joint
CPT/HCPCS: 73030; 93005; 93010; 96372; 99283-25; J1885

== ENCOUNTER 2023-08-21 13:57 | Emergency (ER) | payer MEDICARE ==
[~2023-08-21] VITALS: Ht 170.2 cm; Wt 99.8 kg
[~2023-08-21 13:57] MED LIST changes: +CELE100 PO; +Nexium40 MG; +Norco 5-325 Ta1 EACH PO
[2023-08-21] MEDS ORDERED: Ketorolac Tromethamine 15mg Vial IV ONE (14:05)
[2023-08-21 14:43] LABS: BASOPHILS ABSOLUTE AUTO 0.03 K/mm3 (0.00-0.23); BASOPHILS PERCENT AUTO 1 % (0-2); EOSINOPHILS ABSOLUTE AUTO 0.13 K/mm3 (0.00-0.68); EOSINOPHILS PERCENT AUTO 2 % (0-6); Hematocrit 34.7 % (37.0-53.0); Hemoglobin 11.5 g/dL (13.5-17.5); IMMATURE GRAN ABSOLUTE AUTO 0.06 K/mm3 (0.00-0.10); IMMATURE GRAN PERCENT AUTO 1 % (0-1); LYMPHOCYTES ABSOLUTE AUTO 1.18 K/mm3 (0.84-5.20); LYMPHOCYTES PERCENT AUTO 21 % (21-46); MONOCYTES ABSOLUTE AUTO 0.45 K/mm3 (0.16-1.47); MONOCYTES PERCENT AUTO 8 % (4-13); Mean Corpuscular HGB 31.7 pg (26.0-34.0); Mean Corpuscular HGB Conc 33.1 g/dL (31.5-36.5); Mean Corpuscular Volume 96 fL (80-100); Mean Platelet Volume 9.7 fL (9.1-12.4); NEUTROPHILS ABSOLUTE AUTO 3.88 K/mm3 (1.96-9.15); NEUTROPHILS PERCENT AUTO 68 % (41-73); Platelet Count 160 K/mm3 (150-400); RDW Coefficient Variation 14.3 % (11.7-14.2); RDW Standard Deviation 50.1 fL (35.1-46.3); Red Blood Cell Count 3.63 M/mm3 (4.30-5.90); White Blood Cell Count 5.73 K/mm3 (4.00-11.30)
[2023-08-21 14:48] LABS: Albumin, Blood 2.7 g/dL (3.4-5.0); Albumin/Globulin Ratio 0.5 (0.8-1.8); Bilirubin, Total 0.5 mg/dL (0.1-1.0); Bun/Creatinine Ratio 14.4 (12.0-20.0); Calcium, Blood 8.7 mg/dL (8.5-10.1); Creatinine, Blood 1.04 mg/dL (0.60-1.20); Globulin, Blood 5.6 g/dL (2.2-4.0); Potassium, Blood 4.5 mmol/L (3.5-5.5); Total Protein, Blood 8.3 g/dL (6.4-8.2)
[2023-08-21 16:01] VITALS: BP 131/57
== END 2023-08-21 16:15 | disposition home or self-care (01) ==
LOC: ER 13:57
PROVIDERS: Physician Assistant
DX: R10.11 Right upper quadrant pain (principal); Z88.8 Allergy status to other drugs, medicaments and biological substances; Z88.1 Allergy status to other antibiotic agents; Z88.2 Allergy status to sulfonamides; Z79.899 Other long term (current) drug therapy; Z79.82 Long term (current) use of aspirin; I10 Essential (primary) hypertension
CPT/HCPCS: 76705; 80053; 83690; 85025; J1885

== ENCOUNTER 2023-11-19 11:21 | Emergency (ER) | payer MEDICARE ==
[~2023-11-19] VITALS: Ht 175.3 cm; Wt 99.8 kg
[~2023-11-19 11:21] MED LIST changes: -Nexium40 MG; +PANT40 PO; +SPIRONOLACTONE50 MG PO
[2023-11-19] MEDS ORDERED: Morphine Sulfate 4 MG/1 ML Injection IV ONE (11:40)
[2023-11-19] MEDS ORDERED: Ondansetron HCl 2 MG / ML 2ML Vial IV ONE (11:40)
[2023-11-19 11:48] LABS: BASOPHILS ABSOLUTE AUTO 0.02 K/mm3 (0.00-0.23); BASOPHILS PERCENT AUTO 0 % (0-2); EOSINOPHILS ABSOLUTE AUTO 0.02 K/mm3 (0.00-0.68); EOSINOPHILS PERCENT AUTO 0 % (0-6); Hematocrit 34.7 % (37.0-53.0); Hemoglobin 11.8 g/dL (13.5-17.5); IMMATURE GRAN ABSOLUTE AUTO 0.05 K/mm3 (0.00-0.10); IMMATURE GRAN PERCENT AUTO 1 % (0-1); LYMPHOCYTES ABSOLUTE AUTO 0.97 K/mm3 (0.84-5.20); LYMPHOCYTES PERCENT AUTO 13 % (21-46); MONOCYTES ABSOLUTE AUTO 0.58 K/mm3 (0.16-1.47); MONOCYTES PERCENT AUTO 8 % (4-13); Mean Corpuscular HGB 32.2 pg (26.0-34.0); Mean Corpuscular Volume 95 fL (80-100); NEUTROPHILS ABSOLUTE AUTO 6.03 K/mm3 (1.96-9.15); NEUTROPHILS PERCENT AUTO 79 % (41-73); Platelet Count 131 K/mm3 (150-400); RDW Coefficient Variation 15.4 % (11.7-14.2); RDW Standard Deviation 53.7 fL (35.1-46.3); Red Blood Cell Count 3.67 M/mm3 (4.30-5.90); White Blood Cell Count 7.67 K/mm3 (4.00-11.30)
[2023-11-19 12:06] LABS: Albumin, Blood 2.3 g/dL (3.4-5.0); Albumin/Globulin Ratio 0.4 (0.8-1.8); Bilirubin, Total 1.3 mg/dL (0.1-1.0); Bun/Creatinine Ratio 14.4 (12.0-20.0); Calcium, Blood 9.4 mg/dL (8.5-10.1); Creatinine, Blood 0.83 mg/dL (0.60-1.20); Potassium, Blood 4.7 mmol/L (3.5-5.5); Total Protein, Blood 8.3 g/dL (6.4-8.2)
[2023-11-19 12:30] VITALS: BP 138/68
[2023-11-19] MEDS ORDERED: Ketorolac Tromethamine 15mg Vial IV ONE (14:40)
[2023-11-19] MEDS ORDERED: HYDROcodone 5-APAP 325 TAB PO ONE (15:10)
[2023-11-19] MEDS ORDERED: HYDROCODONE-AC1 EA10 PO (15:13)
== END 2023-11-19 15:47 | disposition home or self-care (01) ==
LOC: ER 11:21
PROVIDERS: Emergency Medicine
DX: M25.511 Pain in right shoulder (principal); Z88.8 Allergy status to other drugs, medicaments and biological substances; Z88.2 Allergy status to sulfonamides; Z88.1 Allergy status to other antibiotic agents; Z79.899 Other long term (current) drug therapy; Z79.82 Long term (current) use of aspirin; Z87.891 Personal history of nicotine dependence; I10 Essential (primary) hypertension; I25.10 Atherosclerotic heart disease of native coronary artery without angina pectoris; I25.2 Old myocardial infarction; M10.9 Gout, unspecified; E78.5 Hyperlipidemia, unspecified
CPT/HCPCS: 71045; 71260; 80053; 83880; 84484; 85025; 85379; 93005; 93010; 96374-59; 96375-59; 99285-25; A9270; J1885; J2270; J2405; Q9967

== ENCOUNTER 2023-11-25 16:20 | Inpatient (IN) | payer MEDICARE ==
[~2023-11-25] VITALS: Ht 175.3 cm; Wt 95.8 kg
[~2023-11-25 16:20] MED LIST changes: +HYDROCODONE-AC1 EA10 PO
[2023-11-25 16:57] LABS: BASOPHILS ABSOLUTE AUTO 0.04 K/mm3 (0.00-0.23); BASOPHILS PERCENT AUTO 0 % (0-2); EOSINOPHILS ABSOLUTE AUTO 0.05 K/mm3 (0.00-0.68); EOSINOPHILS PERCENT AUTO 1 % (0-6); Hematocrit 34.6 % (37.0-53.0); Hemoglobin 11.3 g/dL (13.5-17.5); IMMATURE GRAN ABSOLUTE AUTO 0.05 K/mm3 (0.00-0.10); IMMATURE GRAN PERCENT AUTO 1 % (0-1); LYMPHOCYTES PERCENT AUTO 9 % (21-46); MONOCYTES ABSOLUTE AUTO 0.63 K/mm3 (0.16-1.47); MONOCYTES PERCENT AUTO 7 % (4-13); Mean Corpuscular HGB 31.2 pg (26.0-34.0); Mean Corpuscular HGB Conc 32.7 g/dL (31.5-36.5); Mean Corpuscular Volume 96 fL (80-100); Mean Platelet Volume 9.9 fL (9.1-12.4); NEUTROPHILS ABSOLUTE AUTO 7.95 K/mm3 (1.96-9.15); NEUTROPHILS PERCENT AUTO 83 % (41-73); Platelet Count 230 K/mm3 (150-400); RDW Coefficient Variation 14.8 % (11.7-14.2); Red Blood Cell Count 3.62 M/mm3 (4.30-5.90); White Blood Cell Count 9.62 K/mm3 (4.00-11.30)
[2023-11-25 17:16] LABS: Albumin, Blood 2.3 g/dL (3.4-5.0); Albumin/Globulin Ratio 0.3 (0.8-1.8); Bilirubin, Total 0.9 mg/dL (0.1-1.0); Bun/Creatinine Ratio 16.2 (12.0-20.0); Calcium, Blood 9.5 mg/dL (8.5-10.1); Creatinine, Blood 1.17 mg/dL (0.60-1.20); Globulin, Blood 6.6 g/dL (2.2-4.0); Potassium, Blood 4.4 mmol/L (3.5-5.5); Total Protein, Blood 8.9 g/dL (6.4-8.2)
[2023-11-25] MEDS ORDERED: Morphine Sulfate 4 MG/1 ML Injection IV ONE (22:45)
[2023-11-25] MEDS ORDERED: Nitroglycerin 0.4 MG SUBL SL ONE (23:05)
[2023-11-25] MEDS ORDERED: Aspirin 325 MG Tab PO ONE (23:05)
[2023-11-26] MEDS ORDERED: Morphine Sulfate 4 MG/1 ML Injection IV ONE (01:55)
[2023-11-26] MEDS ORDERED: Lidocaine 4% 1 Patch TOP ONE (01:55)
[2023-11-26] MEDS ORDERED: FLU VACC TS2024-25(6MOS UP)/PF 45 MCG/0.5 ML SYRINGE IM PRN (07:25)
[2023-11-26] MEDS ORDERED: FentaNYL Citrate 50 MCG/ML 2 ML Injection IV PRN ×2 (07:25→12:00)
[2023-11-26] MEDS ORDERED: FentaNYL Citrate 50 MCG/ML 2 ML Injection IV ONE (10:00)
[2023-11-26] MEDS ORDERED: HYDROmorphone HCl/Pf 1MG SYR IV PRN (11:10)
[2023-11-26] MEDS ORDERED: OXYC5 PO (12:32)
[2023-11-26 14:14] LABS: Hemoglobin 9.6 g/dL (13.5-17.5)
[2023-11-26 15:58] VITALS: BP 129/64
--- NOTE | 2023-11-26 16:26 | NUR ---
ADMISSION NOTE MR CASTANEDA WAS ADMITTED TO MEDICAL UNIT FROM ER AT 1455HRS. HE WAS ABLE TO WALK FROM THE STRETCHER TO BED WITH STEADY GAIT. HE HAS RUQ/R RIB PAIN THAT HE SAID IS MUCH IMPROVED SINCE DILAUDID DOSE HE GOT BEFORE LEAVING ER. HEAT ALSO HELPS THE PAIN AND HE WAS GIVEN A HEATING PAD. HE DESCRIBES MELENA STOOL PRIOR TO ADMISSION. COLLECTION DEVICE IN TOILET FOR ASSESSMENT. HE AND HIS LIVE IN A RV WHICH HE HAS IN THE PARKING LOT HERE AT [facility]. THERE IS NO HEAT IN THE RV HE IS OUT OF FUEL. THEY DESCRIBE HAVING A DECREASE IN FOOD STAMPS AND RUNNING OUT OF FOOD OFTEN OVER THE PAST YEAR. MR CASTANEDA HAS LOST ~30LBS OVER THE LAST YEAR ON PURPOSE. PT AND HIS JODI VERBALISE UNDERSTANDING OF [facility] POLICY OF NO IGNITION SOURCES IN THE HOSPITAL AND PT VERBALISED UNDERSTANDING OF FALL PRECAUTIONS. BED LOW, CALL LIGHT IN REACH.
[2023-11-26] MEDS ORDERED: Pantoprazole Sodium 40 MG Injection IV SCH (16:30)
[2023-11-26] MEDS ORDERED: Peg/Electrolytes 4,000 ML BTL PO ONE (16:50)
--- NOTE | 2023-11-26 17:48 | NUR ---
SHIFT SUMMARY SEE ADMISSION NOTE. MR CASTANEDA HAS STARTED GLYTELY BOWEL PREP FOR ENDOSCOPY TOMORROW. PAIN STILL CONTROLLED AFTER DILAUDID AT THIS TIME. AT BEDSIDE. NO BM SINCE ADMISSION.
[2023-11-26 18:49] LABS: Hematocrit 28.7 % (37.0-53.0); Hemoglobin 9.4 g/dL (13.5-17.5)
[2023-11-26 20:05] VITALS: BP 134/58
[2023-11-27] MEDS ORDERED: Ondansetron HCl 2 MG / ML 2ML Vial IV PRN (01:10)
[2023-11-27 02:05] VITALS: BP 133/55
--- NOTE | 2023-11-27 02:49 | NUR ---
PT HAS STRUGGLED TO DRINK THE BOWEL PREP ALL NIGHT. i HAVE EDUCATED THE PT ON THE IMPORTANCE OF DRINKING THE BOWEL PREP FOR HIS COLONOSCOPY AND THE PT HAS STATED "I CANT DRINK THIS ANYMORE AND ITS MY BODY".i HAVE REMINDED THE PT TO LET ME KNOW IF HE HAS A BM SO I CAN OBSERVE WHAT THE BM LOOKS LIKE AND HE SAID HE WILL CALL IF HE DOES HAVE A BM. PT HAS DRANK MAYBE HALF OF THE BOWEL PREP SINCE IT WAS GIVEN TO HIM ON DAYSHIFT YESTERDAY.
--- NOTE | 2023-11-27 04:21 | NUR ---
PT IS A 68 YO FULL CODE MALE WHO WAS ADMITTED FOR RECTAL BLEEDING. PT IS CURRENTLY SUPPOSED TO BE DRINKING HIS BOWEL PREP FOR COLONOSCOPY SOMETIME TODAY BUT HAS ONLY FINISHED HALF AND NOT WANTING TO DRINK THE REST (SEE PREV NOTE). PT COMPLAINS OF RIGHT RIB PAIN AND TAKES Q4 PRN FOR SEVERE PAIN DILAUDID (SEE eMAR). PT'S WAS HERE AT THE BEGINNING OF THE SHIFT BUT LEFT AT ABOUT 2000 LAST NIGHT.PT HAS NOT HAD A BM YET AND KNOWS TO CALL WHEN HE DOES HAVE ONE.PT IS IND IN ROOM AND CALLS APPROPRIATLY.PT EXPERIENCED NAUSEA AND WHEN I CALLED THE DOCTOR HE PRESCRIBED ZOFRAN (SEE eMAR).
[2023-11-27 06:24] LABS: BASOPHILS ABSOLUTE AUTO 0.02 K/mm3 (0.00-0.23); BASOPHILS PERCENT AUTO 0 % (0-2); EOSINOPHILS ABSOLUTE AUTO 0.06 K/mm3 (0.00-0.68); EOSINOPHILS PERCENT AUTO 1 % (0-6); Hematocrit 27.8 % (37.0-53.0); Hemoglobin 8.9 g/dL (13.5-17.5); IMMATURE GRAN ABSOLUTE AUTO 0.04 K/mm3 (0.00-0.10); IMMATURE GRAN PERCENT AUTO 1 % (0-1); LYMPHOCYTES ABSOLUTE AUTO 0.56 K/mm3 (0.84-5.20); LYMPHOCYTES PERCENT AUTO 10 % (21-46); MONOCYTES ABSOLUTE AUTO 0.35 K/mm3 (0.16-1.47); MONOCYTES PERCENT AUTO 6 % (4-13); Mean Corpuscular HGB 30.9 pg (26.0-34.0); Mean Corpuscular Volume 97 fL (80-100); Mean Platelet Volume 10.1 fL (9.1-12.4); NEUTROPHILS PERCENT AUTO 82 % (41-73); Platelet Count 174 K/mm3 (150-400); RDW Coefficient Variation 14.9 % (11.7-14.2); RDW Standard Deviation 53.2 fL (35.1-46.3); Red Blood Cell Count 2.88 M/mm3 (4.30-5.90); White Blood Cell Count 5.83 K/mm3 (4.00-11.30)
[2023-11-27 07:11] LABS: Bun/Creatinine Ratio 17.8 (12.0-20.0); Creatinine, Blood 0.84 mg/dL (0.60-1.20); Potassium, Blood 4.3 mmol/L (3.5-5.5)
[2023-11-27 07:25] VITALS: BP 105/55
[2023-11-27] MEDS ORDERED: Metoprolol Succinate 50 MG TABCR PO SCH (09:00)
[2023-11-27] MEDS ORDERED: Aspirin 81 MG Chew PO SCH (09:00)
[2023-11-27 13:02] VITALS: BP 133/65
--- NOTE | 2023-11-27 13:07 | NUR ---
History, Chart, Medications and Allergies reviewed before start of procedure. Pre-Op teaching done. Pt verbalizes understanding. Patient confirms NPO status and agrees with scheduled surgery. PT LEFT ALL BELONINGS IN MED FLOOR RM.
[2023-11-27] MEDS ORDERED: NS 500 ML IV SCH (13:15)
[2023-11-27] MEDS ORDERED: propofoL 40 ML IV ONE (13:16)
[2023-11-27] MEDS ORDERED: NS 500 ML IV ONE (13:19)
--- NOTE | 2023-11-27 13:29 | NUR ---
11/27/23 1329 Janki Bond History, Chart, Medications and Allergies reviewed before start of procedure. MONITOR INTACT WITH CONTINUOUS PULSE OXIMETRY, CONTINUOUS END TITAL CO2, AND INTERMITTENT BLOOD PRESSURE. 3-LEAD EKG REVIEWED WITH PHYSICIAN PRIOR TO START OF PROCEDURE. Bite Block Placed.
--- NOTE | 2023-11-27 13:35 | NUR ---
IV PLACED WHILE PT WAS UNDER SEDATION.
[2023-11-27 14:13] VITALS: BP 145/65
[2023-11-27 14:49] VITALS: BP 130/56
--- NOTE | 2023-11-27 18:30 | NUR ---
END OF SHIFT SUMMARY: A&Ox4. PLEASANT AND COOPERATIVE WITH CARE. CALLS APPROPRIATELY AND IS ABLE TO ADVOCATE NEEDS EFFECTIVELY. AMBULATES INDEPENDENTLY WITHIN THE ROOM; AT BEDSIDE ENTIRETY OF DAY. CONTINENT OF BOWEL AND BLADDER. LBM TODAY; UNABLE TO COMPLETE GO-LYTELY AND COLONOSCOPY UNTABL ETO BE DONE. MEDS WHOLE WITH FLUIDS. C/O PAIN THROUGHOUT MUCH OF SHIFT C/O RUQ/RIB PAIN THAT'S WORSENED OVER THE COURASE OF THE LAST TWO DAYS; PRE PROVIDER LIKELY R/T HEPATOCELLULAR CANCER. EGD COMPLETED TODAY. PROVIDER ORDERED HEPATIC MRI FOR TOMORROW. BED IN LOWEST POSITION. CALL LIGHT WITHIN REACH. ALL NEEDS MET. REPORT TO ONCOMING NURSE.
[2023-11-27 19:49] VITALS: BP 128/63
[2023-11-27] MEDS ORDERED: Lidocaine 4% 1 Patch TOP PRN (21:30)
[2023-11-28] MEDS ORDERED: HYDROmorphone HCl/Pf 1MG SYR IV PRN (02:40)
[2023-11-28] MEDS ORDERED: FentaNYL Citrate 50 MCG/ML 2 ML Injection IV PRN (02:40)
[2023-11-28 03:06] VITALS: BP 131/54
[2023-11-28 05:22] LABS: BASOPHILS ABSOLUTE AUTO 0.02 K/mm3 (0.00-0.23); BASOPHILS PERCENT AUTO 0 % (0-2); EOSINOPHILS ABSOLUTE AUTO 0.18 K/mm3 (0.00-0.68); EOSINOPHILS PERCENT AUTO 3 % (0-6); Hematocrit 28.4 % (37.0-53.0); Hemoglobin 9.1 g/dL (13.5-17.5); IMMATURE GRAN ABSOLUTE AUTO 0.04 K/mm3 (0.00-0.10); IMMATURE GRAN PERCENT AUTO 1 % (0-1); LYMPHOCYTES ABSOLUTE AUTO 0.62 K/mm3 (0.84-5.20); LYMPHOCYTES PERCENT AUTO 11 % (21-46); MONOCYTES ABSOLUTE AUTO 0.32 K/mm3 (0.16-1.47); MONOCYTES PERCENT AUTO 6 % (4-13); Mean Corpuscular HGB 31.1 pg (26.0-34.0); Mean Corpuscular Volume 97 fL (80-100); NEUTROPHILS ABSOLUTE AUTO 4.49 K/mm3 (1.96-9.15); NEUTROPHILS PERCENT AUTO 79 % (41-73); Platelet Count 184 K/mm3 (150-400); RDW Coefficient Variation 14.7 % (11.7-14.2); RDW Standard Deviation 52.8 fL (35.1-46.3); Red Blood Cell Count 2.93 M/mm3 (4.30-5.90); White Blood Cell Count 5.67 K/mm3 (4.00-11.30)
[2023-11-28 05:46] LABS: Albumin, Blood 1.9 g/dL (3.4-5.0); Albumin/Globulin Ratio 0.3 (0.8-1.8); Bilirubin, Direct 0.3 mg/dL (0.0-0.3); Bilirubin, Indirect 0.3 mg/dL (0.1-0.7); Bilirubin, Total 0.6 mg/dL (0.1-1.0); Bun/Creatinine Ratio 15.7 (12.0-20.0); Calcium, Blood 9.5 mg/dL (8.5-10.1); Creatinine, Blood 0.96 mg/dL (0.60-1.20); Globulin, Blood 5.5 g/dL (2.2-4.0); Potassium, Blood 4.2 mmol/L (3.5-5.5); Total Protein, Blood 7.4 g/dL (6.4-8.2)
[2023-11-28 07:27] VITALS: BP 123/54
--- NOTE | 2023-11-28 07:35 | NUR ---
ECONOMIC ADVISER SUMMARY NO ACUTE CHANGES. PT A/OX4. ABLE TO MAKE NEEDS KNOWN. PT REPORTING 8-10/10 PAIN IN RIGHT RIB/SIDE AREA; PAIN INCREASED WITH MOVEMENT AND BREATHING. PT VOICING FEARS/CONCERNS FOR GROWING CANCER. PLACED CALL TO HOSPITALIST; NEW ORDER TO INCREASE DOSE AND FREQUENCY OF DILAUDED; NEW ORDER FOR PRN FENTANYL. GAVE PT 2MG OF DILAUDID WITH GOOD EFFECT. INTERVAL ROUNDING COMPLETE. CALL LIGHT IN REACH.
[2023-11-28 10:23] VITALS: BP 125/59
--- NOTE | 2023-11-28 12:09 | NUR ---
IMAGING UNABLE TO COMPLETE SCAN D/T PATIENT HAVING STENTS. WILL NEED SEND COPY OF STENT CARD TO IMAGING OFFICE TO DETERMINE WHAT KIND OF SCAN CAN BE DONE. PLEASE FAX CARD COPY TO [phone].
--- NOTE | 2023-11-28 12:58 | NUR ---
DOCUMENTS OF LAST TWO CARDIAC CATHETERIZATIONS FAXED TO [facility] AND [facility] NOTIFIED. WILL TALK TO PATIENT TO SEE IF THERE ARE OTHER RECORDS TO BE OBTAINED.
[2023-11-28 14:55] VITALS: BP 125/54
[2023-11-28 19:31] VITALS: BP 115/53
--- NOTE | 2023-11-28 19:36 | NUR ---
END OF SHIFT SUMMARY: A&Ox4. PLEASANT AND COOPERATIVE WITH CARE. CALLS APPROPRIATELY AND IS ABLE TO ADVOCATE NEEDS EFFECTIVELY. CONTINENT OF BOWEL AND BLADDER AND AMBULATES INDEPENDENTLY WITHIN THE ROOM. MEDS WHOLE WITH FLUIDS. TELE NSR. PAIN IN RUQ; MEDICATED PRN DILAUDID. UNABLE TO COMPLETE MRI TODAY DUE TO NEEDING STENT Hx. UNABLE TO OBTAIN ALL STENT Hx DURING THIS SHIFT. DR KRAUSE MENTIONS THIS WILL LIKELY BE DONE OUTPATIENT THE RESULTS OF CT WERE REREAD AND DO NOT INDICATE URGENT NEED FOR MRI. BED IN LOWEST POSITION. CALL LIGHT WITHIN REACH. ALL NEEDS MET. REPORT TO ONCOMING NURSE.
[2023-11-29 02:37] VITALS: BP 121/55
--- NOTE | 2023-11-29 05:13 | NUR ---
NAVAL MARINE ENGINEER SUMMARY PT A/OX4. NO ACUTE CHANGES. DR TRAORE AT BEDSIDE FOR CONSULT/TO DISCUSS PLAN OF CARE. DR TRAORE NOTES AVAILABLE. DECISION FOR NO COLONOSCOPY AT THIS TIME. DR TRAORE INDICATED PAIN IS NOT RELATED TO LIVER/CANCER. THE PT CONTINUES TO C/O OF PAIN IN RIGHT RIB AREA WHICH FLUCTUATES AND INTENSIFIES WITH MOVEMENT/BREATHING. PT ALSO HAS PAIN IN RIGHT SHOULDER. PT GIVEN PAIN MEDS PER MAR AND LIDOCANE PATCH FOR SHOULDER. PT IS ABLE TO MAKE NEEDS KNOWN. CALL LIGHT IS ACCESSIBLE.
[2023-11-29 05:46] LABS: Albumin, Blood 1.7 g/dL (3.4-5.0); Albumin/Globulin Ratio 0.3 (0.8-1.8); Bilirubin, Total 0.5 mg/dL (0.1-1.0); Bun/Creatinine Ratio 12.8 (12.0-20.0); Calcium, Blood 9.3 mg/dL (8.5-10.1); Creatinine, Blood 0.94 mg/dL (0.60-1.20); Globulin, Blood 5.2 g/dL (2.2-4.0); Potassium, Blood 4.2 mmol/L (3.5-5.5); Total Protein, Blood 6.9 g/dL (6.4-8.2)
[2023-11-29 05:50] LABS: BASOPHILS ABSOLUTE AUTO 0.03 K/mm3 (0.00-0.23); BASOPHILS PERCENT AUTO 1 % (0-2); EOSINOPHILS ABSOLUTE AUTO 0.29 K/mm3 (0.00-0.68); EOSINOPHILS PERCENT AUTO 6 % (0-6); Hematocrit 30.4 % (37.0-53.0); Hemoglobin 9.3 g/dL (13.5-17.5); IMMATURE GRAN ABSOLUTE AUTO 0.02 K/mm3 (0.00-0.10); IMMATURE GRAN PERCENT AUTO 0 % (0-1); LYMPHOCYTES ABSOLUTE AUTO 0.51 K/mm3 (0.84-5.20); LYMPHOCYTES PERCENT AUTO 11 % (21-46); MONOCYTES ABSOLUTE AUTO 0.28 K/mm3 (0.16-1.47); MONOCYTES PERCENT AUTO 6 % (4-13); Mean Corpuscular HGB 31.3 pg (26.0-34.0); Mean Corpuscular HGB Conc 30.6 g/dL (31.5-36.5); Mean Corpuscular Volume 102 fL (80-100); Mean Platelet Volume 9.9 fL (9.1-12.4); NEUTROPHILS ABSOLUTE AUTO 3.61 K/mm3 (1.96-9.15); NEUTROPHILS PERCENT AUTO 76 % (41-73); Platelet Count 197 K/mm3 (150-400); RDW Coefficient Variation 14.5 % (11.7-14.2); RDW Standard Deviation 54.8 fL (35.1-46.3); Red Blood Cell Count 2.97 M/mm3 (4.30-5.90); White Blood Cell Count 4.74 K/mm3 (4.00-11.30)
[2023-11-29 07:34] VITALS: BP 112/57
[2023-11-29] MEDS ORDERED: OxyCODONE HCL 5 MG TAB PO PRN (13:55)
[2023-11-29 14:58] VITALS: BP 132/56
[2023-11-29] MEDS ORDERED: HYDROmorphone HCl/Pf 1MG SYR IV PRN (16:05)
--- NOTE | 2023-11-29 17:43 | NUR ---
SHIFT SUMMARY PT IS A/OX4. NO ACUTE CHANGES THROUGHOUT THE SHIFT. ULTRASOUND AND MRI COMPLETED THIS AFTERNOON. PT CONTINUES TO EXPERIENCE PAIN IN THE RUQ/RIBS AND MEDICATED WITH ROXICODONE X1 THIS SHIFT PER APR. PT'S AT BEDSIDE THROUGHOUT THE SHIFT.
[2023-11-29 19:10] VITALS: BP 132/59
[2023-11-30 05:05] VITALS: BP 115/66
[2023-11-30 05:54] LABS: BASOPHILS ABSOLUTE AUTO 0.04 K/mm3 (0.00-0.23); BASOPHILS PERCENT AUTO 1 % (0-2); EOSINOPHILS ABSOLUTE AUTO 0.31 K/mm3 (0.00-0.68); EOSINOPHILS PERCENT AUTO 6 % (0-6); Hematocrit 27.3 % (37.0-53.0); Hemoglobin 8.6 g/dL (13.5-17.5); IMMATURE GRAN ABSOLUTE AUTO 0.05 K/mm3 (0.00-0.10); IMMATURE GRAN PERCENT AUTO 1 % (0-1); LYMPHOCYTES ABSOLUTE AUTO 0.68 K/mm3 (0.84-5.20); LYMPHOCYTES PERCENT AUTO 12 % (21-46); MONOCYTES ABSOLUTE AUTO 0.32 K/mm3 (0.16-1.47); MONOCYTES PERCENT AUTO 6 % (4-13); Mean Corpuscular HGB 30.5 pg (26.0-34.0); Mean Corpuscular HGB Conc 31.5 g/dL (31.5-36.5); Mean Platelet Volume 9.6 fL (9.1-12.4); NEUTROPHILS ABSOLUTE AUTO 4.26 K/mm3 (1.96-9.15); NEUTROPHILS PERCENT AUTO 75 % (41-73); Platelet Count 191 K/mm3 (150-400); RDW Coefficient Variation 14.4 % (11.7-14.2); RDW Standard Deviation 50.9 fL (35.1-46.3); Red Blood Cell Count 2.82 M/mm3 (4.30-5.90); White Blood Cell Count 5.66 K/mm3 (4.00-11.30)
[2023-11-30 06:02] LABS: Mean Corpuscular Volume 97 fL (80-100)
[2023-11-30 06:27] LABS: Albumin, Blood 1.8 g/dL (3.4-5.0); Albumin/Globulin Ratio 0.3 (0.8-1.8); Bilirubin, Total 0.5 mg/dL (0.1-1.0); Bun/Creatinine Ratio 14.1 (12.0-20.0); Calcium, Blood 9.2 mg/dL (8.5-10.1); Creatinine, Blood 0.92 mg/dL (0.60-1.20); Globulin, Blood 5.4 g/dL (2.2-4.0); Potassium, Blood 4.2 mmol/L (3.5-5.5); Total Protein, Blood 7.2 g/dL (6.4-8.2)
--- NOTE | 2023-11-30 06:40 | NUR ---
SHIFT SUMMARY PT AWAKE LYING IN BED AT START OF SHIFT. PT EXPRESSES HIS PAIN IS CHRONIC, AND "NEVER FULLY GOES AWAY" BUT IS RECEPTIVE TO CARE OFFERED. PT IN ROOM FOR NIGHT. PT HAD TO BE MEDICATED FOR PAIN THROUGHOUT SHIFT. PT STATES HEATING PAD IS "VERY HELPFUL". PT SLEEPING PEACEFULLY AND HAS BEEN PLEASANT AND COOPERATIVE WITH HIS CARE.
[2023-11-30 07:13] VITALS: BP 114/66
[2023-11-30] MEDS ORDERED: Clopidogrel Bisulfate 75 MG Tab PO SCH (09:00)
[2023-11-30] MEDS ORDERED: HYDROmorphone HCl 2 MG Tab PO PRN (10:10)
--- NOTE | 2023-11-30 10:50 | NUR ---
Spiritual care Visit At the request of staff this lease operator visited the Pt. and his spouse, who it was reported by multiple staff had been quite emotional in the med floor wating. Pt. is pleasant and alert and welcomed my visit. Spouse dislpayed evidence of regaining composure and perspective. Both verbalize an expectation that their eligibility consultant would be arriving soon. Facilitated life review and considered matters of stone and belief. Pt. verbalized that know that he had received a diagnosis, he has more questions regarding urgency or timing. Prayed with Pt. and spouse. Both the Pt. and Spouse verbalize gratitude gratitude for the spiritual care visit. This lease operator personally updated Palliative Care regarding the Pts. questions.
--- NOTE | 2023-11-30 11:45 | NUR ---
Spiritual Care - Palliative Nurse Support Pt. is sitting up in a chair and welcomes our visit. This customer experience retail clerk basically introduced Nurse Kaitlyn Otoole and then supported the conversation. Pt. verbalized gratitude for the spiritual care visit.
--- NOTE | 2023-11-30 13:49 | NUR ---
DR. KRAUSE NOTIFIED OF TOLERABLE PAIN MANAGEMENT PER REQUEST.
--- NOTE | 2023-11-30 14:38 | NUR ---
pt stressed about information of tumor burden. He is having a headache and some increased tighness in abdomen and labored breathing. called dr trivedi office to get pt fiancial assitance through the cancer center.
[2023-11-30] MEDS ORDERED: HYDMOR2 PO (15:48)
[2023-11-30] MEDS ORDERED: PANT40 PO (15:48)
== END 2023-11-30 16:16 | disposition home or self-care (01) | DRG 378 ==
LOC: ER 16:20 → MEDS 16:21 → ERHOLD 16:21 → MEDS 11-26 14:58
PROVIDERS: Family Medicine; Physician Assistant; Surgery; ADMIT Family Medicine
PROC: 0DJ08ZZ Inspection of Upper Intestinal Tract, Via Natural or Artificial Opening Endoscopic (ICD-10-PCS; principal; 2023-11-27 12:00)
DX: K62.5 Hemorrhage of anus and rectum (principal); D62 Acute posthemorrhagic anemia; E87.1 Hypo-osmolality and hyponatremia; M10.9 Gout, unspecified; I25.10 Atherosclerotic heart disease of native coronary artery without angina pectoris; E78.5 Hyperlipidemia, unspecified; I10 Essential (primary) hypertension; K74.60 Unspecified cirrhosis of liver; D69.59 Other secondary thrombocytopenia; K21.9 Gastro-esophageal reflux disease without esophagitis; K22.5 Diverticulum of esophagus, acquired; Z95.5 Presence of coronary angioplasty implant and graft; Z79.82 Long term (current) use of aspirin; Z79.02 Long term (current) use of antithrombotics/antiplatelets; I25.2 Old myocardial infarction; Z87.19 Personal history of other diseases of the digestive system; Z88.8 Allergy status to other drugs, medicaments and biological substances; Z98.890 Other specified postprocedural states; Z88.2 Allergy status to sulfonamides; Z87.891 Personal history of nicotine dependence; Z87.01 Personal history of pneumonia (recurrent); Z79.899 Other long term (current) drug therapy; R07.89 Other chest pain; M16.11 Unilateral primary osteoarthritis, right hip
CPT/HCPCS: 36415; 71046; 71275; 74175; 74183; 76705; 80048; 80053; 80076; 83690; 84484; 85014; 85018; 85025; 85379; 93005; 93010; 96374; 96375; 96375-59; 96376; 96376-59; 99285-25; A9270; A9581; G0378; J1170; J2270; J2405; J2470; J2704; J3010; J7040; Q9967

== ENCOUNTER → 2023-12-13 | Outpatient (CLI) | payer MEDICARE ==
[~2023-12-13] MED LIST changes: +HYDMOR2 PO; +OXYC5 PO
[2023-12-13 12:34] LABS: BASOPHILS ABSOLUTE AUTO 0.02 K/mm3 (0.00-0.23); BASOPHILS PERCENT AUTO 1 % (0-2); EOSINOPHILS ABSOLUTE AUTO 0.07 K/mm3 (0.00-0.68); EOSINOPHILS PERCENT AUTO 2 % (0-6); Hematocrit 30.3 % (37.0-53.0); Hemoglobin 9.7 g/dL (13.5-17.5); IMMATURE GRAN ABSOLUTE AUTO 0.02 K/mm3 (0.00-0.10); IMMATURE GRAN PERCENT AUTO 1 % (0-1); LYMPHOCYTES ABSOLUTE AUTO 0.55 K/mm3 (0.84-5.20); LYMPHOCYTES PERCENT AUTO 13 % (21-46); MONOCYTES ABSOLUTE AUTO 0.22 K/mm3 (0.16-1.47); MONOCYTES PERCENT AUTO 5 % (4-13); Mean Corpuscular HGB 31.2 pg (26.0-34.0); Mean Corpuscular Volume 97 fL (80-100); Mean Platelet Volume 9.7 fL (9.1-12.4); NEUTROPHILS ABSOLUTE AUTO 3.28 K/mm3 (1.96-9.15); NEUTROPHILS PERCENT AUTO 79 % (41-73); Platelet Count 117 K/mm3 (150-400); RDW Coefficient Variation 16.2 % (11.7-14.2); RDW Standard Deviation 57.1 fL (35.1-46.3); Red Blood Cell Count 3.11 M/mm3 (4.30-5.90); White Blood Cell Count 4.16 K/mm3 (4.00-11.30)
[2023-12-13 13:06] LABS: Albumin, Blood 2.2 g/dL (3.4-5.0); Albumin/Globulin Ratio 0.4 (0.8-1.8); Bilirubin, Total 0.7 mg/dL (0.1-1.0); Bun/Creatinine Ratio 12.5 (12.0-20.0); Calcium, Blood 9.3 mg/dL (8.5-10.1); Creatinine, Blood 0.96 mg/dL (0.60-1.20); Globulin, Blood 5.6 g/dL (2.2-4.0); Potassium, Blood 4.3 mmol/L (3.5-5.5); Total Protein, Blood 7.8 g/dL (6.4-8.2)
== END ==
LOC: LAB 12:22 → LAB SHORT 12:22
PROVIDERS: Internal Medicine Hematology & Oncology
DX: C22.0 Liver cell carcinoma (principal)
CPT/HCPCS: 80053; 82105; 85025

== ENCOUNTER 2024-04-11 14:09 | Emergency (ER) | payer MEDICARE ==
[~2024-04-11] VITALS: Ht 175.3 cm; Wt 89.8 kg
[2024-04-11] MEDS ORDERED: Methocarbamol 500 MG Tab PO ONE (14:30)
[2024-04-11 15:04] LABS: BASOPHILS ABSOLUTE AUTO 0.01 K/mm3 (0.00-0.23); BASOPHILS PERCENT AUTO 0 % (0-2); EOSINOPHILS ABSOLUTE AUTO 0.03 K/mm3 (0.00-0.68); EOSINOPHILS PERCENT AUTO 1 % (0-6); Hematocrit 32.9 % (37.0-53.0); Hemoglobin 11.2 g/dL (13.5-17.5); IMMATURE GRAN ABSOLUTE AUTO 0.01 K/mm3 (0.00-0.10); IMMATURE GRAN PERCENT AUTO 0 % (0-1); LYMPHOCYTES ABSOLUTE AUTO 0.59 K/mm3 (0.84-5.20); LYMPHOCYTES PERCENT AUTO 13 % (21-46); MONOCYTES ABSOLUTE AUTO 0.36 K/mm3 (0.16-1.47); MONOCYTES PERCENT AUTO 8 % (4-13); Mean Corpuscular HGB 33.5 pg (26.0-34.0); Mean Corpuscular Volume 99 fL (80-100); NEUTROPHILS ABSOLUTE AUTO 3.56 K/mm3 (1.96-9.15); NEUTROPHILS PERCENT AUTO 78 % (41-73); Platelet Count 115 K/mm3 (150-400); RDW Coefficient Variation 15.3 % (11.7-14.2); RDW Standard Deviation 54.9 fL (35.1-46.3); Red Blood Cell Count 3.34 M/mm3 (4.30-5.90); White Blood Cell Count 4.56 K/mm3 (4.00-11.30)
[2024-04-11 15:26] LABS: Albumin/Globulin Ratio 0.4 (0.8-1.8); Calcium, Blood 8.5 mg/dL (8.5-10.1); Creatinine, Blood 1.1 mg/dL (0.60-1.20); Globulin, Blood 5.7 g/dL (2.2-4.0); Magnesium, Blood 1.7 mg/dL (1.6-2.4); Potassium, Blood 3.9 mmol/L (3.5-5.5); Total Protein, Blood 7.7 g/dL (6.4-8.2)
[2024-04-11 16:12] LABS: CORONAVIRUS COVID-19 AG Negative (NEGATIVE); INFLUENZA A AG Negative (NEGATIVE); INFLUENZA B AG Negative (NEGATIVE)
[2024-04-11 17:00] VITALS: BP 129/62
[2024-04-11] MEDS ORDERED: Voltaren100 GM TOP (17:00)
== END 2024-04-11 17:24 | disposition home or self-care (01) ==
LOC: ER 14:09
PROVIDERS: Student in an Organized Health Care Education/Training Program
DX: R07.89 Other chest pain (principal); M25.511 Pain in right shoulder; I10 Essential (primary) hypertension; I25.10 Atherosclerotic heart disease of native coronary artery without angina pectoris; I25.2 Old myocardial infarction; E78.5 Hyperlipidemia, unspecified; M10.9 Gout, unspecified; Z87.891 Personal history of nicotine dependence; Z96.641 Presence of right artificial hip joint; Z88.8 Allergy status to other drugs, medicaments and biological substances; Z88.2 Allergy status to sulfonamides; Z88.1 Allergy status to other antibiotic agents; Z79.01 Long term (current) use of anticoagulants; Z79.82 Long term (current) use of aspirin; Z79.899 Other long term (current) drug therapy
CPT/HCPCS: 36415; 71045; 80053; 83735; 84484; 85025; 87428-QW; 93005; 93010; 99285-25; A9270

== ENCOUNTER → 2024-09-13 | Outpatient (CLI) | payer MEDICARE ==
[~2024-09-13] MED LIST changes: +GABA300 PO; +VALACYCLOVIR1000 M1 PO
[2024-09-13 16:24] LABS: BASOPHILS ABSOLUTE AUTO 0.03 K/mm3 (0.00-0.23); BASOPHILS PERCENT AUTO 0 % (0-2); EOSINOPHILS ABSOLUTE AUTO 0.10 K/mm3 (0.00-0.68); EOSINOPHILS PERCENT AUTO 1 % (0-6); Hematocrit 31.9 % (37.0-53.0); Hemoglobin 10.4 g/dL (13.5-17.5); IMMATURE GRAN ABSOLUTE AUTO 0.06 K/mm3 (0.00-0.10); IMMATURE GRAN PERCENT AUTO 1 % (0-1); LYMPHOCYTES ABSOLUTE AUTO 0.69 K/mm3 (0.84-5.20); LYMPHOCYTES PERCENT AUTO 9 % (21-46); MONOCYTES ABSOLUTE AUTO 0.44 K/mm3 (0.16-1.47); MONOCYTES PERCENT AUTO 6 % (4-13); Mean Corpuscular HGB Conc 32.6 g/dL (31.5-36.5); Mean Corpuscular Volume 97 fL (80-100); NEUTROPHILS ABSOLUTE AUTO 6.68 K/mm3 (1.96-9.15); NEUTROPHILS PERCENT AUTO 83 % (41-73); NRBC ABSOLUTE 0.00 K/mm3 (0.00-0.02); NRBC Auto 0.0 /100 WBC (0.0-0.2); Platelet Count 142 K/mm3 (150-400); RDW Coefficient Variation 17.4 % (11.7-14.2); RDW Standard Deviation 61.4 fL (35.1-46.3)
[2024-09-13 16:39] LABS: Alanine Aminotransfer (ALT/SGP 68.0 U/L (12-78); Albumin, Blood 1.4 g/dL (3.4-5.0); Albumin/Globulin Ratio 0.2 (0.8-1.8); Anion Gap 9.0 mmol/L (3-11); Aspartate Aminotrans (AST/SGOT 138.0 U/L (12-37); Bilirubin, Total 1.5 mg/dL (0.1-1.0); Blood Urea Nitrogen 14.0 mg/dL (8-24); CO2, Blood 27.0 mmol/L (21-32); Calcium, Blood 8.6 mg/dL (8.5-10.1); Chloride, Blood 97.0 mmol/L (98-108); Creatinine, Blood 1.26 mg/dL (0.60-1.20); Globulin, Blood 5.8 g/dL (2.2-4.0); Glucose, Blood 113.0 mg/dL (70-99); Potassium, Blood 4.3 mmol/L (3.5-5.5); Sodium, Blood 129.0 mmol/L (136-145); Total Protein, Blood 7.2 g/dL (6.4-8.2)
== END ==
LOC: LAB 16:17 → LAB SHORT 16:17
PROVIDERS: Physician Assistant
DX: R50.9 Fever, unspecified (principal)
CPT/HCPCS: 80053; 85025

== ENCOUNTER 2024-09-14 13:19 | Emergency (ER) | payer MEDICARE ==
[~2024-09-14] VITALS: Ht 175.3 cm; Wt 90.3 kg
[~2024-09-14 13:19] MED LIST changes: -GABA300 PO; -VALACYCLOVIR1000 M1 PO
[2024-09-14 14:05] VITALS: BP 134/57
[2024-09-14 14:44] LABS: BASOPHILS ABSOLUTE AUTO 0.05 K/mm3 (0.00-0.23); BASOPHILS PERCENT AUTO 1 % (0-2); EOSINOPHILS ABSOLUTE AUTO 0.05 K/mm3 (0.00-0.68); EOSINOPHILS PERCENT AUTO 1 % (0-6); Hematocrit 34.1 % (37.0-53.0); Hemoglobin 10.8 g/dL (13.5-17.5); IMMATURE GRAN ABSOLUTE AUTO 0.07 K/mm3 (0.00-0.10); IMMATURE GRAN PERCENT AUTO 1 % (0-1); LYMPHOCYTES ABSOLUTE AUTO 0.77 K/mm3 (0.84-5.20); LYMPHOCYTES PERCENT AUTO 9 % (21-46); MONOCYTES ABSOLUTE AUTO 0.38 K/mm3 (0.16-1.47); MONOCYTES PERCENT AUTO 4 % (4-13); Mean Corpuscular HGB Conc 31.7 g/dL (31.5-36.5); Mean Corpuscular Volume 99 fL (80-100); NEUTROPHILS ABSOLUTE AUTO 7.37 K/mm3 (1.96-9.15); NEUTROPHILS PERCENT AUTO 85 % (41-73); NRBC ABSOLUTE 0.00 K/mm3 (0.00-0.02); NRBC Auto 0.0 /100 WBC (0.0-0.2); Platelet Count 140 K/mm3 (150-400); RDW Coefficient Variation 17.6 % (11.7-14.2); RDW Standard Deviation 63.4 fL (35.1-46.3)
[2024-09-14 15:03] LABS: Alanine Aminotransfer (ALT/SGP 69.0 U/L (12-78); Albumin, Blood 1.4 g/dL (3.4-5.0); Albumin/Globulin Ratio 0.2 (0.8-1.8); Anion Gap 10.0 mmol/L (3-11); Aspartate Aminotrans (AST/SGOT 149.0 U/L (12-37); Bilirubin, Total 1.2 mg/dL (0.1-1.0); Blood Urea Nitrogen 15.0 mg/dL (8-24); CO2, Blood 22.0 mmol/L (21-32); Calcium, Blood 8.5 mg/dL (8.5-10.1); Chloride, Blood 105.0 mmol/L (98-108); Creatinine, Blood 0.99 mg/dL (0.60-1.20); Globulin, Blood 6.3 g/dL (2.2-4.0); Glucose, Blood 153.0 mg/dL (70-99); Potassium, Blood 4.8 mmol/L (3.5-5.5); Sodium, Blood 132.0 mmol/L (136-145); Total Protein, Blood 7.7 g/dL (6.4-8.2)
[2024-09-14] MEDS ORDERED: GABA300 PO ×2 (16:02→16:04)
[2024-09-14] MEDS ORDERED: VALACYCLOVIR1000 M1 PO (16:02)
[2024-09-14] MEDS ORDERED: Ketorolac Tromethamine 15mg Vial IV ONE (16:10)
== END 2024-09-14 16:57 | disposition home or self-care (01) ==
LOC: ER 13:19
PROVIDERS: Student in an Organized Health Care Education/Training Program
DX: B02.9 Zoster without complications (principal); I10 Essential (primary) hypertension; I25.2 Old myocardial infarction; Z87.891 Personal history of nicotine dependence; Z79.02 Long term (current) use of antithrombotics/antiplatelets; Z79.82 Long term (current) use of aspirin; Z79.899 Other long term (current) drug therapy; Z88.1 Allergy status to other antibiotic agents; Z88.8 Allergy status to other drugs, medicaments and biological substances
CPT/HCPCS: 80053; 85025; 96374; 99283-25; A9270; J1885

== ENCOUNTER 2024-09-15 16:04 | Emergency (ER) | payer MEDICARE ==
[~2024-09-15] VITALS: Ht 175.3 cm; Wt 90.7 kg
[~2024-09-15 16:04] MED LIST changes: +GABA300 PO; +VALACYCLOVIR1000 M1 PO
[2024-09-15 19:26] LABS: BASOPHILS ABSOLUTE AUTO 0.01 K/mm3 (0.00-0.23); BASOPHILS PERCENT AUTO 0 % (0-2); EOSINOPHILS ABSOLUTE AUTO 0.21 K/mm3 (0.00-0.68); EOSINOPHILS PERCENT AUTO 4 % (0-6); Hematocrit 28.7 % (37.0-53.0); Hemoglobin 9.0 g/dL (13.5-17.5); IMMATURE GRAN ABSOLUTE AUTO 0.03 K/mm3 (0.00-0.10); IMMATURE GRAN PERCENT AUTO 1 % (0-1); LYMPHOCYTES ABSOLUTE AUTO 0.67 K/mm3 (0.84-5.20); LYMPHOCYTES PERCENT AUTO 14 % (21-46); MONOCYTES ABSOLUTE AUTO 0.30 K/mm3 (0.16-1.47); MONOCYTES PERCENT AUTO 6 % (4-13); Mean Corpuscular HGB Conc 31.4 g/dL (31.5-36.5); Mean Corpuscular Volume 98 fL (80-100); NEUTROPHILS ABSOLUTE AUTO 3.64 K/mm3 (1.96-9.15); NEUTROPHILS PERCENT AUTO 75 % (41-73); NRBC ABSOLUTE 0.00 K/mm3 (0.00-0.02); NRBC Auto 0.0 /100 WBC (0.0-0.2); Platelet Count 131 K/mm3 (150-400); RDW Coefficient Variation 17.6 % (11.7-14.2); RDW Standard Deviation 62.7 fL (35.1-46.3)
[2024-09-15 19:47] LABS: Alanine Aminotransfer (ALT/SGP 61.0 U/L (12-78); Albumin, Blood 1.3 g/dL (3.4-5.0); Albumin/Globulin Ratio 0.2 (0.8-1.8); Anion Gap 6.0 mmol/L (3-11); Aspartate Aminotrans (AST/SGOT 125.0 U/L (12-37); Bilirubin, Total 0.9 mg/dL (0.1-1.0); Blood Urea Nitrogen 18.0 mg/dL (8-24); CO2, Blood 28.0 mmol/L (21-32); Calcium, Blood 8.3 mg/dL (8.5-10.1); Chloride, Blood 105.0 mmol/L (98-108); Creatinine, Blood 1.05 mg/dL (0.60-1.20); Globulin, Blood 5.5 g/dL (2.2-4.0); Glucose, Blood 98.0 mg/dL (70-99); Potassium, Blood 4.5 mmol/L (3.5-5.5); Sodium, Blood 134.0 mmol/L (136-145); Total Protein, Blood 6.8 g/dL (6.4-8.2)
[2024-09-15 20:15] VITALS: BP 134/62
== END 2024-09-15 21:01 | disposition home or self-care (01) ==
LOC: ER 16:04
PROVIDERS: Emergency Medicine
DX: R07.89 Other chest pain (principal); E78.5 Hyperlipidemia, unspecified; I10 Essential (primary) hypertension; I25.2 Old myocardial infarction; Z87.891 Personal history of nicotine dependence; Z79.82 Long term (current) use of aspirin; Z79.02 Long term (current) use of antithrombotics/antiplatelets; Z79.899 Other long term (current) drug therapy; Z88.1 Allergy status to other antibiotic agents; Z88.8 Allergy status to other drugs, medicaments and biological substances
CPT/HCPCS: 71046; 80053; 84484; 85025; 93005; 93010; 99285-25; C1751